=== PATIENT | female | born 1960 | race Caucasian/White ===

== ENCOUNTER 2025-03-22 11:04 | Outpatient (AMB) | payer MEDICARE, MEDICAID, SELFPAY ==
--- OUTSIDE RECORDS SUMMARY | 2025-03-17 23:59 | XMS_ITS | Continuity of Care Document ---
Author Organization [facility] Address [address] [place] [address]- Care Team Providers Care Voip Engineer Name Role Phone Elder Cinthia VARGAS Primary Care Physicia n Encounter [facility] Date(s): 02/15/25 - 03/17/25 [facility] [address] [place] [id number] Encounter Type: Triage Allergies, Adverse Reactions, Alerts No Known Allergies Immunizations Given and Recorded Vaccine Date Status Refusal Reason influenza virus vaccine, inactivated 1 06/18/23 Gi john influenza virus vaccine, inactivated 2 06/10/22 Gi john influenza virus vaccine, inactivated 3, 4 04/25/19 Given influenza virus vaccine, inactivated 5 01/01/17 Gi john influenza virus vaccine, inactivated 6 12/10/15 Gi john influenza virus vaccine, inactivated 12/23/14 Give n influenza virus vaccine, inactivated 01/25/10 Glynn rded influenza virus vaccine, inactivated 05/03/08 Glynn rded SARS-CoV-2 (COVID-19) mRNA-1273 vaccine 09/19/20 R ecorded SARS-CoV-2 (COVID-19) mRNA-1273 vaccine 08/21/20 R ecorded Tet/diphth/pertussis, acel (oldterm) 7 12/23/14 Gi john tetanus/diphtheria/pertussis, acel(Tdap) 12/23/14 Recorded tetanus/diphtheria/pertussis, acel(Tdap) 05/03/13 Given pneumococcal 23-valent vaccine 8 01/02/14 Given tetanus-diphtheria toxoids (Td) 04/20/03 Recorded 1Result Comment: [facility] [id number] 2Result Comment: [facility] [id number] 3Early/Late Reason: Other : . 4Result Comment: [facility] [id number] [facility] 6[facility] 7[facility] 8[facility] Medications buPROPion 100 mg oral tablet 1 tablet, By Mouth, 2 times a day, # 180 tablet, 1 Refills, Maintenance, 06/24/23 2:28:00 PM EST, MEDMINDER, 155.6, cm, 06/18/23 14:47:00 EST, Height Start Date: 06/24/23 Status: Ordered Medication Dispense Status: Completed Quantity: 180.0 Unit: tablet Total Allowed Fills: 2 Fills Dispensed: 0 docusate sodium 100 mg oral tablet 2 tablet = 200 mg, By Mouth, Daily, 0 Refills, Maintenance, 03/16/25 7:53:00 AM EST, Partial fill upon patient request if the prescription is for a schedule II opioid drug. Start Date: 03/16/25 Status: Ordered Medication Dispense Status: Completed Total Allowed Fills: 1 Fills Dispensed: 0 Flonase 50 mcg/inh nasal spray 1 sprays = 50 mcg, Nares, Both, Daily, 0 Refills, Maintenance, 03/16/25 7:54:00 AM EST, Partial fill upon patient request if the prescription is for a schedule II opioid drug. Start Date: 03/16/25 Status: Ordered Medication Dispense Status: Completed Total Allowed Fills: 1 Fills Dispensed: 0 Freestyle Lite Lancets See Instructions, # 100 each, Refills 5, Tot. Refills 5, Maintenance, USE TO CHECK GLUCOSE ONCE DAILY DX E11.9, 07/13/23 4:32:00 PM EDT, Supply, 155.6, cm, 06/29/23 14:24:00 EDT, Height Start Date: 07/13/23 Status: Ordered Medication Dispense Status: Completed Quantity: 100.0 Unit: each Total Allowed Fills: 6 Fills Dispensed: 0 Freestyle Lite Monitor See Instructions, # 1 each, Maintenance, USE TO CHECK GLUCOSE ONCE DAILY DX E11.9, 07/13/23 4:33:00 PM EDT, Supply, 155.6, cm, 06/29/23 14:24:00 EDT, Height Start Date: 07/13/23 Status: Ordered Medication Dispense Status: Completed Quantity: 1.0 Unit: each Total Allowed Fills: 1 Fills Dispensed: 0 Freestyle Lite Test Strips See Instructions, # 100 each, Refills 5, Tot. Refills 5, Maintenance, USE TO CHECK GLUCOSE ONCE DAILY DX E11.9, 07/13/23 4:33:00 PM EDT, Supply, 155.6, cm, 06/29/23 14:24:00 EDT, Height Start Date: 07/13/23 Status: Ordered Medication Dispense Status: Completed Quantity: 100.0 Unit: each Total Allowed Fills: 6 Fills Dispensed: 0 glipiZIDE 10 mg oral tablet 1 tablet = 10 mg, By Mouth, 2 times a day, 0 Refills, Maintenance, 03/16/25 7:54:00 AM EST, Partialfill upon patient request if the prescription is for a schedule II opioid drug. Start Date: 03/16/25 Status: Ordered Medication Dispense Status: Completed Total Allowed Fills: 1 Fills Dispensed: 0 ibuprofen 400 mg oral tablet 400 mg, 1, tablet, By Mouth, Every 6 hours, PRN, Refills 0, Maintenance, Pain , Moderate, 03/16/25 7:54:00 AM EST, Partial fill upon patient request if the prescription is for a schedule II opioid drug. Start Date: 03/16/25 Status: Ordered Medication Dispense Status: Completed Total Allowed Fills: 1 Fills Dispensed: 0 Insta-Glucose 24 g/31 g oral gel = 24 Gm, By Mouth, Daily, PRN Blood Glucose, 0 Refills, Maintenance, 03/16/25 7:55:00 AM EST, Partial fill upon patient request if the prescription is for a schedule II opioid drug. Start Date: 03/16/25 Status: Ordered Medication Dispense Status: Completed Total Allowed Fills: 1 Fills Dispensed: 0 insulin glargine-yfgn 100 units/mL subcutaneous solution = 12 units, Subcutaneous Injection, Daily, 0 Refills, Maintenance, 03/16/25 7:55:00 AM EST, Partialfill upon patient request if the prescription is for a schedule II opioid drug. Start Date: 03/16/25 Status: Ordered Medication Dispense Status: Completed Total Allowed Fills: 1 Fills Dispensed: 0 insulin lispro 100 u/ml subcutaneous injection 0-6 units, Subcutaneous Injection, 3 times a day before meals, 151-200=2 units 201-250=3 units 301-350=4 units 351-399=6 units, 0 Refills, Maintenance, 03/16/25 7:56:00 AM EST, Partial fill upon patient request if the prescription is for a schedule II opioid drug. Start Date: 03/16/25 Status: Ordered Medication Dispense Status: Completed Total Allowed Fills: 1 Fills Dispensed: 0 Lipitor 20 mg oral tablet 1 tablet = 20 mg, By Mouth, Daily, 0 Refills, Maintenance, 03/16/25 7:50:00 AM EST, Partial fill upon patient request if the prescription is for a schedule II opioid drug. Start Date: 03/16/25 Status: Ordered Medication Dispense Status: Completed Total Allowed Fills: 1 Fills Dispensed: 0 loperamide 2 mg oral capsule 2 mg, 1, capsule, By Mouth, Every 8 hours, PRN, Refills 0, Maintenance, as needed for loose stool, 03/16/25 7:57:00 AM EST, Partial fill upon patient request if the prescription is for a schedule II opioid drug. Start Date: 03/16/25 Status: Ordered Medication Dispense Status: Completed Total Allowed Fills: 1 Fills Dispensed: 0 MiraLax oral powder for reconstitution 1 pack/packet, By Mouth, Every 24 hours, PRN Constipation, 0 Refills, Maintenance, 03/16/25 7:52:00AM EST, Partial fill upon patient request if the prescription is for a schedule II opioid drug. Start Date: 03/16/25 Status: Ordered Medication Dispense Status: Completed Total Allowed Fills: 1 Fills Dispensed: 0 Norvasc 5 mg oral tablet 5 mg, 1, tablet, By Mouth, Daily, Refills 0, Maintenance, 03/16/25 7:50:00 AM EST, Partial fill upon patient request if the prescription is for a schedule II opioid drug. Start Date: 03/16/25 Status: Ordered Medication Dispense Status: Completed Total Allowed Fills: 1 Fills Dispensed: 0 ondansetron 4 mg oral tablet 1 tablet = 4 mg, By Mouth, Every 6 hours, PRN Nausea & Vomiting, 0 Refills, Maintenance, 03/16/25 8:00:00 AM EST, Partial fill upon patient request if the prescription is for a schedule II opioiddrug. Start Date: 03/16/25 Status: Ordered Medication Dispense Status: Completed Total Allowed Fills: 1 Fills Dispensed: 0 Senna 8.6 mg oral tablet 17.2 mg, 2, tablet, By Mouth, Every 24 hours, PRN, Refills 0, Maintenance, as needed for constipation, 03/16/25 7:57:00 AM EST, Partial fill upon patient request if the prescription is for a scheduleII opioid drug. Start Date: 03/16/25 Status: Ordered Medication Dispense Status: Completed Total Allowed Fills: 1 Fills Dispensed: 0 TRANSFER SHOWER CHAIR TRANSFER SHOWER CHAIR, See Instructions, # 1 each, Refills 0, Tot. Refills 0, Maintenance, PREVIOUSCHAIR BROKE USE DIRECTED, DX H/O CVA, [address] [address] [place] [employer] [phone], 08/23/21 9:57:00 AM EDT, Supply Start Date: 08/23/21 Status: Ordered Medication Dispense Status: Completed Quantity: 1.0 Unit: each Total Allowed Fills: 1 Fills Dispensed: 0 traZODone 150 mg oral tablet 1 tablet = 150 mg, By Mouth, Daily at bedtime, 0 Refills, Maintenance, 03/16/25 7:59:00 AM EST, Partial fill upon patient request if the prescription is for a schedule II opioid drug. Start Date: 03/16/25 Status: Ordered Medication Dispense Status: Completed Total Allowed Fills: 1 Fills Dispensed: 0 traZODone 50 mg oral tablet 25 mg, 0.5, tablet, By Mouth, 2 times a day, Refills 0, Maintenance, 03/16/25 7:58:00 AM EST, Partial fill upon patient request if the prescription is for a schedule II opioid drug. Start Date: 03/16/25 Status: Ordered Medication Dispense Status: Completed Total Allowed Fills: 1 Fills Dispensed: 0 Tums 500 mg oral tablet, chewable 500 mg, 1, tablet, Chew, 3 times a day, PRN, Refills 0, Maintenance, Indigestion, 03/16/25 7:51:00 AM EST, Partial fill upon patient request if the prescription is for a schedule II opioid drug. Start Date: 03/16/25 Status: Ordered Medication Dispense Status: Completed Total Allowed Fills: 1 Fills Dispensed: 0 Tylenol 325 mg oral tablet 650 mg, 2, tablet, By Mouth, Every 4 hours, PRN, NTE 3 gm/24 hours, Refills 0, Maintenance, Mild Pain/Fever, 03/16/25 7:49:00 AM EST, Partial fill upon patient request if the prescription is for a schedule II opioid drug. Start Date: 03/16/25 Status: Ordered Medication Dispense Status: Completed Total Allowed Fills: 1 Fills Dispensed: 0 Voltaren Arthritis Pain 1% topical gel 2 - 4 gm, Topically, Every 6 hours, PRN Pain , Moderate, Max 16 gm per day, 0 Refills, Maintenance,03/16/25 7:59:00 AM EST, Partial fill upon patient request if the prescription is for a schedule IIopioid drug. Start Date: 03/16/25 Status: Ordered Medication Dispense Status: Completed Total Allowed Fills: 1 Fills Dispensed: 0 Walker See Instructions, # 1 each, Maintenance, ROLLING WALKER, 06/20/22 3:44:00 PM EST, Supply, 155.6, cm, 06/10/22 13:09:00 EST, Height Start Date: 06/20/22 Status: Ordered Medication Dispense Status: Completed Quantity: 1.0 Unit: each Total Allowed Fills: 1 Fills Dispensed: 0 Indications: Unspecified osteoarthritis, unspecified site; Other intervertebral disc degeneration, lumbar region; WHEELED WALKER WITH SEAT WHEELED WALKER WITH SEAT, See Instructions, # 1 each, Refills 0, Tot. Refills 0, Maintenance, USE DIRECTED DX UNSTEADY GAIT, [place] [facility] [phone], 09/04/20 11:54:00 AM EDT, Supply Start Date: 09/04/20 Status: Ordered Medication Dispense Status: Completed Quantity: 1.0 Unit: each Total Allowed Fills: 1 Fills Dispensed: 0 Zoloft 100 mg oral tablet 2 tablet = 200 mg, By Mouth, Daily, 0 Refills, Maintenance, 03/16/25 7:58:00 AM EST, Partial fill upon patient request if the prescription is for a schedule II opioid drug. Start Date: 03/16/25 Status: Ordered Medication Dispense Status: Completed Total Allowed Fills: 1 Fills Dispensed: 0 ZyrTEC 10 mg oral tablet 1 tablet = 10 mg, By Mouth, Daily, 0 Refills, Maintenance, 03/16/25 8:00:00 AM EST, Partial fill upon patient request if the prescription is for a schedule II opioid drug. Start Date: 03/16/25 Status: Ordered Medication Dispense Status: Completed Total Allowed Fills: 1 Fills Dispensed: 0 Problem List Condition Confirmation Course Effective Dates Status H ealth Status Informant Hypertrophy of inter-atrial septum, lipomatous Confirmed Active Arthritis of both elbows Confirmed Active Cervical radiculopathy Confirmed Active Lumbar degenerative disc disease Confirmed Active DM II (or NOS), controlled Confirmed Active Dyslipidemia Confirmed Active Hypertension Confirmed Active Fibromyalgia syndrome Confirmed Active SELENA (generalized anxiety disorder) Confirmed Active SELENA (generalized anxiety disorder) Confirmed Active History of gastric ulcer Confirmed Active H/O: osteoarthritis Confirmed Active History of CVA (cerebrovascular accident) Confirmed Active Iron deficiency anemia Confirmed Active MDD (major depressive disorder), recurrent episode, moderate Confirmed Active Fatty infiltration of liver Confirmed Active Social History Social History Type Response Tobacco Other: [birth year] x 44y. Sex Sex Representation Female (finding) Patient Care team information Care Team Personnel Name: Cinthia Frias MD Position: [facility] Physician - Neurology Member Role: PCP Address: [address] [place] [address] Telecom: Care Team Related Persons Name: DAY TRUJILLO Name: ROSY TAY Name: CHAUNCEY TAY Name: GILA CARLSON Name: FIDELIA PEREZ Insurance Providers Guarantor name: EDD TAY Health Plan Information #: 1 Payer: MEDICARE B Payer Identifier: NA Member Number: [id number] Group Number: NA Subscriber Identifier: NA Relationship to Subscriber: self Coverage Type: NA Coverage Verification Date: NA Telecom: Address: Health Plan Information #: 2 Payer: [employer] Payer Identifier: NA Member Number: [id number] Group Number: [id number] Subscriber Identifier: NA Relationship to Subscriber: self Coverage Type: MEDICAID Coverage Verification Date: NA Telecom: Address:
--- NOTE | 2025-03-22 11:06 | A.OFFPC_ITS ---
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, diabetic Intake Note: New patient presents with wanting to renew medications and is diabetic Global Chief Experience Officer Required: No Accompanied by: psych room manager Allergies No Known Allergies Allergy (Verified 03/22/25 11:15) Tobacco use date assessed: 03/22/25 Fall risk assessment: 1 Fall in past year Last assessed Fall Risk: 03/22/25 Dental Screening Dental Screen Date: 03/22/25 Did you have a dental visit in the last 12 months?: No Did you have a dental problem in the last 6 months where you did not have access to dental care?: Yes Was dental information given to patient?: No HPI HPI Comments History of Present Illness Details History of Present Illness The patient is a 64 year old individual presenting to [facility] care and for medication refills. Type 2 Diabetes Mellitus: The patient has a history of type 2 diabetes mellitus and takes glipizide 10 mg and metformin 1000 mg twice a day. The patient was unsure what glipizide was for when asked. Major Depressive Disorder: The patient self-reports a history of depression and is on several medications for it, including bupropion, trazodone, and possibly sertraline, though the patient is unaware of what sertraline is used for. History of Cerebrovascular Accident: The patient has a history of a stroke that occurred more than 10 years ago. The patient reports it did not affect the patient's memory. Chronic Pain: The patient has a history of arthritis in both elbows, osteoarthritis, fibromyalgia, and lumbar degenerative disc disease, for which the patient reports taking acetaminophen and meloxicam 7.5 mg for generalized pain. The patient uses a wheeled walker with a seat. Chronic Constipation: The patient reports suffering from constipation and not diarrhea. The patient has taken polyethylene glycol (MiraLAX) and is on fiber therapy. Hypertension: The patient has a history of hypertension and takes amlodipine 10 mg daily. Dyslipidemia: The patient has a history of dyslipidemia and takes atorvastatin 10 mg for cholesterol. Surgical History: - Cholecystectomy - Repair of umbilical hernia - Colonoscopies - Endoscopies - section Medications: - Amlodipine 10 mg once a day for hypert ension - Aspirin 325 mg - Atorvastatin 10 mg for cholesterol - Bupropion 100 mg for depression - Cyanocobalamin 1000 mcg - Ferrous sulfate - Flonase (fluticasone), daily - Fiber therapy for constipation - Glipizide 10 mg for diabetes - Hydroxyzine 25 mg three times a day as needed - Magnesium 400 mg - Meloxicam 7.5 mg for pain - Metformin 1000 mg twice a day for diab etes - Crepurosin 2% topical cream - Nystatin - Esomeprazole 40 mg for stomach - Zofran (ondansetron) 4 mg - Oxybutynin 5 mg - Trazodone 150 mg for depression - Acetaminophen for pain - Polyethylene glycol (MiraLAX) for cons tipation - Sertraline - Ibuprofen for pain Social History: - The patient is [facility]ing from [facility]) to a residential ([facility]). - The patient states the reason for bein g in a alf was because the patient's children said they could not provide care. - The decision to move to the residential was made by the patient's children. - Functional Status: The patient uses a wheeled walker with a seat. - Tobacco use history was reviewed, but no specifics were detailed in the conversation. Past Medical History - Arthritis of both elbows - Cervical radiculopathy - Type 2 diabetes - Dyslipidemia - Fatty infiltration of liver - Fibromyalgia syndrome - Generalized anxiety disorder (SELENA) - Osteoarthritis - Cerebrovascular accident (CVA), occurr ed over 10 years ago - Gastric ulcer - Hypertension - Hypertrophy of interatrial septum - B12 deficiency anemia - Lumbar degenerative disc disease - Major depressive disorder (MDD), recur rent, moderate - History of transient ischemic attack ( TIA) - Acute stress disorder Health Maintenance - The patient needs new dentures and was informed that a referral is not required to see a dentist. - The patient's glasses are broken; the patient was advised that a referral is not needed to see an automotive parts advisor for a new prescription. - Due to type 2 diabetes, the patient re quires a yearly retina examination with an supervisor insulation, and a referral will be provided. - As part of comprehensive diabetes [facility], open referrals will be provided for a healthcare corporate account director, a art educator, and a orthodontic lab technician. [facility] Medical History (Updated 03/25/25 @ 11:32 by Marino Reed MD) SELENA (generalized anxiety disorder) Cervical radiculopathy Chronic constipation Chronic pain MDD (major depressive disorder) Wheelchair dependence Gait instability Right elbow pain Bilateral finger arthralgia History of CVA (cerebrovascular accident) Dizziness Osteoarthritis Degenerative disc disease, lumbar Lumbar spondylosis Cervical disc disorder w/radiculopathy minzoaii-qtxtsjs-crday region Anemia Peptic ulcer disease Gastritis Steatosis, liver Dyslipidemia Dysphagia Hypertrophic cardiomyopathy Hypertension Fibromyalgia Type 2 diabetes mellitus TIA (transient ischemic attack) CVA (cerebral vascular accident) Surgical History (Updated 03/22/25 @ 11:32 by Wagner Craig CMA) H/O hand surgery Hx of cholecystectomy H/O section Family History (Updated 03/22/25 @ 11:33 by Wagner Craig CMA) Sister Substance abuse Other FH: mental illness Social History (Updated 03/22/25 @ 11:33 by Wagner Craig CMA) Housing: Assisted Living Facility Alcohol intake: never Patient Tobacco Use Status: Former Tobacco user e-Cigarette/Vaping Use: Never Used Second Hand Smoke Exposure: No service: No Current occupational status: disabled Current occupational exposures/hazards: No Cognitive needs: Yes Hearing needs: Yes Vision needs: Yes Questionnaire PHQ-9 Over the last 2 weeks, how often have you been bothered by any of the following problems? 1. Little interest or pleasure in doing things: not at all 2. Feeling down, depressed, or hopeless: not at all 3. Trouble falling or staying asleep, or sleeping too much: not at all 4. Feeling tired or having little energy: not at all 5. Poor appetite or overeating: not at all 6. Feeling bad about yourself - or that you are a failure or have let yourself o r your family down: not at all 7. Trouble concentrating on things, such as reading the newspaper or watching television: not at all 8. Moving or speaking so slowly that other people could have noticed. Or the opposite - being so fidgety or restless that you have been moving around a lot more than usual: not at all 9. Thoughts that you would be better off or of hurting yourself in some way: not at all Total score: 0 Depression Screening Interpretation: Negative Depression Screening Done: Yes 31046 - PHQ-9 Billing: Yes Source: Developed by Drs. Radames Crawley, Sophie Clarke, Jonatan zamora nd colleagues, with an educational aaron from [employer]. Thrive Questionnaire Date Thrive assessed: 03/22/25 I am a: Patient What is your living situation today?: I have a steady place to live Within the past 12 months, did the food you bought not last and you didn't have the money to get more?: Never true Within the past 12 months, did you worry whether your food would run out before you got money to buy more?: Never true Do you have trouble paying for medicines?: No Do you have trouble getting transportation to medical appointments?: No Do you have trouble paying your heating and electricity bill?: No Do you have trouble taking care of your child, family member or friend?: No Are you currently unemployed and looking for a job?: No Are you interested in more education?: No Please select the resources that you would like help with: None Currently or been in a relationship where the following occur: No concerns reported THRIVE Score: 0 AUDIT C Alcohol Use Questionnaire (AUDIT-C) 1. How often do you have a drink containing alcohol?: Never Total Score: 0 SELENA-7 AMB Questionnaire SELENA-7 Date SELENA - 7 assessed: 03/22/25 Feeling nervous, anxious, or on edge: 0 = Not at all Not being able to stop or control worryin = Not at all Worrying too much about different things: 0 = Not at all Trouble relaxin = Not at all Being so restless that it is hard to sit still: 0 = Not at all Becoming easily annoyed or irritable: 0 = Not at all Feeling afraid as if something awful might happen: 0 = Not at all Total SELENA-7 score (0-4 normal; 5-9 mild; 10-14 moderate; 15-21 severe): 0 Source: Developed by Drs. Radames Crawley, Sophie Clarke, Jonatan So and colleagues, with an educational aaron from [employer]. SELENA-7 Assessment Billing SELENA-7 Assessment Tool: SELENA-7 Assessment 67423 Review of Systems Narrative Review of Systems - Psychiatric: Reports history of depression. - Neurological: Denies memory problems related to a past stroke. - Gastrointestinal: Reports constipation. Denies diarrhea and nausea. - Musculoskeletal: Reports generalized pain. 10-point ROS reviewed and negative except as noted in HPI Physical exam (Primary Care) Vital Signs: Last Vital Signs Temp 97.6 F 03/22/25 11:33 Pulse 79 03/22/25 11:33 Resp 16 03/22/25 11:33 BP 142/91 H 03/22/25 11:33 Pulse Ox 97 03/22/25 11:33 Oxygen Delivery Method Room Air 03/22/25 11:33 Tobacco/Smoking Status: Tobacco use Status Tobacco use date assessed 03/22/25 03/22/25 11:33 Patient Tobacco Use Status Former Tobacco user 03/22/25 11:33 e-Cigarette/Vaping Use Never Used 03/22/25 11:33 PHQ-9: PHQ-9 Score PHQ-9: Total score 0 03/22/25 11:39 Depression Screening Interpretation: Negative Thrive Assessment: Date of Thrive Assessment Date Thrive assessed 03/22/25 03/22/25 11:09 Currently or been in a relationship where the following occur: No concerns reported Narrative Physical Exam General: Well-appearing, in no acute distress. Vital signs: Within normal limits. HEENT: Normocephalic, atraumatic. PERRLA, EOMI. Conjunctiva clear, sclera anicteric. Oropharynx clear, mucous membranes moist. TMs intact bilaterally. Neck: Supple, no lymphadenopathy, no thyromegaly, no JVD or carotid bruits. Cardiovascular: RRR, normal S1/S2, no murmurs, rubs, or gallops. Peripheral pulses 2+ and symmetric. No edema. Respiratory: Lungs clear to auscultation bilaterally, no wheezes, rales, or rhonchi. Normal effort. Abdomen: Soft, non-tender, non-distended. Normoactive bowel sounds. No hepatosplenomegaly, no masses. MSK: Full range of motion, no joint swelling or deformity. ataxic gait. Uses a wheeled walker with a seat. Skin: Warm, dry, intact. No rashes, lesions, or pallor. Neuro: Alert and oriented x3. Cranial nerves II-XII intact. Strength 5/5 throughout. Sensation intact. Reflexes 2+ symmetric. Normal coordination and gait. Psych: Appropriate mood and affect. Normal judgment and insight. History of major depressive disorder and generalized anxiety disorder. Coding Level of Care Code New Pt Level 4 (20750) Diagnoses Type 2 diabetes mellitus E11.9 MDD (major depressive disorder) F32.9 History of CVA (cerebrovascular accident) Z86.73 Chronic pain G89.29 Bilateral finger arthralgia M25.541; M25.542 Right elbow pain M25.521 Gait instability R26.81 Wheelchair dependence Z99.3 Dizziness R42 Fibromyalgia M79.7 Chronic constipation K59.09 Osteoarthritis M19.90 Degenerative disc disease, lumbar M51.369 Cervical radiculopathy M54.12 SELENA (generalized anxiety disorder) F41.1 Additional Codes SELENA-7 Assessment Billing - SELENA-7 Assessment Tool: SELENA-7 Assessment 92048 ([id number]) PHQ-9 - 78683 - PHQ-9 Billing: Yes ([id number]) Assessment & Plan Assessment & Plan (1) Type 2 diabetes mellitus: Code(s): E11.9 - Type 2 diabetes mellitus without complications Category: Medical (2) MDD (major depressive disorder): Code(s): F32.9 - Major depressive disorder, single episode, unspecified Category: Medical (3) History of CVA (cerebrovascular accident): Code(s): Z86.73 - Personal history of transient ischemic attack (TIA), and cerebral infarction without residual deficits Category: Medical (4) Chronic pain: Code(s): G89.29 - Other chronic pain Category: Medical (5) Bilateral finger arthralgia: Code(s): M25.541 - Pain in joints of right hand; M25.542 - Pain in joints of left hand Category: Medical (6) Right elbow pain: Code(s): M25.521 - Pain in right elbow Category: Medical (7) Gait instability: Code(s): R26.81 - Unsteadiness on feet Category: Medical (8) Wheelchair dependence: Code(s): Z99.3 - Dependence on wheelchair Category: Medical (9) Dizziness: Code(s): R42 - Dizziness and giddiness Category: Medical (10) Fibromyalgia: Code(s): M79.7 - Fibromyalgia Category: Medical (11) Chronic constipation: Code(s): K59.09 - Other constipation Category: Medical (12) Osteoarthritis: Code(s): M19.90 - Unspecified osteoarthritis, unspecified site Category: Medical (13) Degenerative disc disease, lumbar: Code(s): M51.369 - Other intervertebral disc degeneration, lumbar region without mention of lumbar back pain or lower extremity pain Category: Medical (14) Cervical radiculopathy: Code(s): M54.12 - Radiculopathy, cervical region Category: Medical (15) SELENA (generalized anxiety disorder): Code(s): F41.1 - Generalized anxiety disorder Category: Medical Plan Consent Patient was informed and verbally consented to the use of an ambient scribe for clinic note documentation during this visit. Plan 1. Establishing Care And Medication Management - Will establish care as the patient's new primary care physician. - Ordered baseline labs, including A1c and lipid panel, to be drawn today. - Will refill medications such as fluticasone, polyethylene glycol, and sertraline at this time. - Will defer refilling metabolic medications like glipizide and atorvastatin until lab results are reviewed. 2. Type 2 Diabetes Mellitus - Intend to discontinue glipizide due to the risk of hypoglycemia and falls. - Management will be re-evaluated after reviewing the A1c result. - Provide referrals for ophthalmology for a yearly retina exam, a healthcare corporate account director, a art educator, and podiatry. 3. Cardiovascular Health (Hypertension, Dyslipidemia, History Of Cva) - Provide referral to cardiology for further evaluation given the patient's history. - Will re-evaluate the need for atorvastatin after reviewing lipid panel results. - Provide referral to neurology as requested for further evaluation. 4. Ancillary Care Needs - The patient was advised to seek appointments with a dentist for dentures and an automotive parts advisor for new glasses, as referrals are not needed. Discussion Notes I have reviewed the patient's extensive medical history and medication list during this visit to establish care. I explained that before I can refill all medications, particularly those for diabetes and cholesterol, I need to see recent lab work to ensure safety and appropriateness of the current regimen. I expressed my concern with the use of glipizide, as it carries a risk of hypoglycemia, which is especially dangerous in a patient who is at high risk for falls. I discussed the importance of comprehensive, team-based care for diabetes management and informed the patient and caregiver that I will provide open referrals to a orthodontic lab technician, healthcare corporate account director, art educator, and an supervisor insulation for a diabetic retina exam. I also agreed to provide referrals to cardiology and neurology. I clarified that referrals are not necessary to see a dentist for dentures or an automotive parts advisor for glasses. Patient Instructions - Please have your blood drawn at the lab here in the clinic today. You do not need to be fasting. - We will refill some of your medications now. Other medications for diabetes and cholesterol will be refilled after your lab results are reviewed. - You can schedule an appointment directly with a dentist to be fitted for new dentures. - You can also schedule an appointment directly with an eye doctor (automotive parts advisor) to get new glasses. - We will provide you with referrals to see specialists for your diabetes, including an personnel placement specialist (supervisor insulation), a foot doctor (orthodontic lab technician), a healthcare corporate account director, and a art educator. - We will also give you referrals to see a heart doctor (carpet installation specialist) and a nerve doctor (neurologist). Medical Decision Making The patient is a 64-year-old individual with a complex polymorbid history who presents to establish care after transitioning from a custodial facility to a residential. The primary goals of this visit were to assume the role of PCP, review and manage the patient's extensive medication list, and address care coordination needs. Given the lack of recent laboratory data, the decision was made to obtain baseline chemistries, A1c, and a lipid panel prior to refilling all medications. Specifically, the use of glipizide is concerning due to the high risk of hypoglycemia and subsequent falls in this vulnerable patient, who already requires a walker for ambulation. I plan to discontinue this medication pending A1c results and will manage the diabetes with safer agents. Comprehensive, team-based care is critical for this patient's type 2 diabetes, and as such, referrals will be placed to podiatry, ophthalmology, a healthcare corporate account director, and a art educator. A cardiology referral is also warranted given the history of CVA/TIA. Non-metabolic medications will be refilled to ensure continuity and prevent decompensation of stable chronic conditions like depression. Total Time Statement Total time spent caring for the patient today includes pre-visit chart review, documentation, review of laboratory and diagnostic imaging results, medication reconciliation, medically necessary evaluation, counseling on diagnoses, care coordination, ordering appropriate tests and medications, review of tests per formed by other providers, reporting test results to the patient, and communication with other healthcare providers. Orders: Orders MMR IgG Measles Mumps Rubella 03/22/25 Z13.9 - Encounter for screening, unspecified Complete Blood Count Auto Diff 03/22/25 Z13.9 - Encounter for screening, unspecified Syphilis Screen 03/22/25 Z13.9 - Encounter for screening, unspecified Comprehensive Met. Panel 03/22/25 Z13.9 - Encounter for screening, unspecified Hepatitis C Antibody 03/22/25 Z13.9 - Encounter for screening, unspecified Lipid Panel 03/22/25 Z13.9 - Encounter for screening, unspecified Magnesium 03/22/25 Z13.9 - Encounter for screening, unspecified OT Evaluation and Treatment 03/22/25 M25.521 - Pain in right elbow, M25.541 - Pain in joints of right hand, M25.542 - Pain in joints of left hand Quantiferon TB Gold Plus 1 03/22/25 Z13.9 - Encounter for screening, un specified Varicella IgG Antibody 03/22/25 Z13.9 - Encounter for screening, unspecified Hepatitis B Surface Antigen 03/22/25 Z13.9 - Encounter for screening, unspecified TSH reflex Free T4 03/22/25 Z13.9 - Encounter for screening, unspecified HIV Ab/Ag 03/22/25 Z13.9 - Encounter for screening, unspecified UA CC w/rflx Micro + Cult 03/22/25 Z13.9 - Encounter for screening, unspecified Vitamin B12 and Folate 03/22/25 Z13.9 - Encounter for screening, unspecified Hemoglobin A1c 03/22/25 Z13.9 - Encounter for screening, unspecified Vitamin D 1,25 dihydroxy 03/22/25 Z13.9 - Encounter for screening, unspecified Hepatitis B Surface Antibody 03/22/25 Z13.9 - Encounter for screening, unspecified PT Evaluation and Treatment 03/22/25 R26.81 - Unsteadiness on feet, Z86.73 - Personal history of transient ischemic attack (TIA), and cerebral infarction without residual deficits, Z99.3 - Dependence on wheelchair Referrals Neurology Referral R42 - Dizziness and giddiness, Z86.73 - Personal history of transient ischemic attack (TIA), and cerebral infarction without residual def icits Nutrition/Dietitian Referral E11.9 - Type 2 diabetes mellitus without complications Nurse Navigator Referral E11.9 - Type 2 diabetes mellitus without complications Podiatry Referral E11.9 - Type 2 diabetes mellitus without complications Ophthalmology Referral E11.9 - Type 2 diabetes mellitus without complications
[2025-03-22 11:33] VITALS: BP 142/91; PULSE 79; RESP 16; TEMP 36.4; O2SAT 97
--- OUTSIDE RECORDS SUMMARY | 2025-03-22 13:11 | XMS_ITS | Encounter Summary ---
Author Organization [facility] Address [address] [place] [address] Care Team Providers Care Director Of Retail Operations Name Role Phone Cinthia Frias MD Primary Care Provider + Encounter Details Date Type Department Care Team (Late st Contact Info) Description 03/10/2024 Lab Requisition [facility] - Main Lab [address] [place] [address] Cinthia Frias MD [address] [id number] Type 2 diabetes mellitus without complications (CMS/HCC V24, CMS/HCC V28) Social History Tobacco Use Types Packs/Day Years Used Date Smoking Tobacco: Every Day Cigarettes Alcohol Use Standard Drinks/Week Comments No 0 (1 standard drink = 0.6 oz pur e alcohol) Comments Unknown Sex and Gender Information Value Date Recorded Sex Assigned at Not on file Legal Sex Female 3:23 PM EST Gender Identity Not on file Sexual Orientation Not on file documented as of this encounter Plan of Treatment Not on file documented as of this encounter Procedures Procedure Name Priority Date/Time Associated Diagnosis Comments HEMOGLOBIN A1C Routine 03/10/2024 7:27 AM EST Type 2 diabetes mellitus without complications (CMS/HCC) documented in this encounter Results * (ABNORMAL) Hemoglobin A1c (03/10/2024 7:27 AM EST) Hemoglobin A1C 11.0(H) <6.5 % LAB CHEMISTRY METHOD 03/10/2024 12:40 PM EST [facility] Mean Bld Glu Estim. 269 mg/dL LAB CHEMISTRY METHOD 03/10/2024 12:[address] [facility] Blood Venous blood specimen / Unknown Venipuncture / Unknown 03/10/2024 7:27 AM EST 03/10/2024 8:24 AM EST us Cinthia Frias MD LAB BLOOD ORDERABLES Fin al Result [facility] ([facility]) [facility] [address] [place] [address], documented in this encounter Visit Diagnoses Diagnosis Type 2 diabetes mellitus without complications (CMS/HCC V24, CMS/HCC V28) documented in this encounter Care Teams Director Of Retail Operations Relationship Specialty Start Date End Date Cinthia Frias MD PCP - General Family Medicine 08/01/24 documented as of this encounter
--- OUTSIDE RECORDS SUMMARY | 2025-03-22 13:11 | XMS_ITS ---
Author Organization [facility] Care Team Providers Care Employment Interviewer Name Role Phone Elder, Cinthia Aguillon Unavailable Unavailab Rhett Hoyt Unavailable Unavailable Sabina Hunter Unavailable Unavailable Janessa Maurer Unavailable Unavailable Nancy Lassiter Unavailable Unavailable Allergies and adverse reactions No Known Allergies Care Team Name Role Address Phone Organization Dates Cinthia Aguillon Elder PCP [address] [place], [address], [place] (Office): : [facility] 07/22/2023 - 03/22/2025 Rhett Modi [address] [place] [address], [address], [place] (Office): : [facility] 07/22/2023 - 03/22/2025 Sabina Hunter [address] [facility], [facility] [address], [place], [address], [facility] (Office): : [facility] 07/22/2023 - 03/22/2025 Janessa Maurer [address] [place], [address], [place] (Office): : [facility] 07/22/2023 - 03/22/2025 Nancy Lassiter [address] [address], [place], [address], [facility] (Office): [facility] 07/22/2023 - 03/22/2025 Encounters Encounter Type Code Code System Description Performer Discharge Disposition Service Delivery Location Date Ambulatory Encounter CPT Code = [id number] Incoordination May Mangalili Discharge to other destination [facility] Address: [address] [place] [address], [phone] [facility]. 07/21 Ambulatory Encounter CPT Code = [id number] Lumbar spondylosis May Mangalili Discharge to other destination [facility] Address: [address] [place] [phone] [facility]. 07/21 Ambulatory Encounter CPT Code = [id number] Finding related to attentiveness May Mangalili Discharge to other destination [facility] Address: [address] [place] [address], [phone] [facility]. 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. 07/21 Ambulatory Encounter CPT Code = [id number] Type 2 diabetes mellitus May Mangalili Discharge to other destination [facility] Address: [address] [place] [address], [phone] [facility]. 07/21 Ambulatory Encounter CPT Code = [id number] Muscle weakness May Mangalili Discharge to other destination [facility] Address: [address] [place] [phone] [facility]. 07/21 Ambulatory Encounter CPT Code = [id number] Adult failure to thrive syndrome May Mangalili Discharge to other destination [facility] Address: [address] [place], [address], [facility]. 07/21 Ambulatory Encounter CPT Code = [id number] Oropharyngeal dysphagia May Mangalili Discharge to other destination [facility] Address: [address] [facility] [address], [facility]. 07/21 Ambulatory Encounter CPT Code = [id number] Degeneration of lumbar intervertebral disc May Mangalili Discharge to other destination [facility] Address: [address] [place], [address], [facility]. 07/21 Ambulatory Encounter CPT Code = [id number] Degeneration of lumbar intervertebral disc May Mangalili Discharge to other destination [facility] Address: [address] [place] [phone] [place] [address]. 07/21 Ambulatory Encounter CPT Code = [id number] Localized, primary osteoarthritis of elbow May Mangalili Discharge to other destination [facility] Address: [address] [place], [address], [facility]. 07/21 Ambulatory Encounter CPT Code = [id number] Localized, primary osteoarthritis of elbow May Mangalili Discharge to other destination [facility]ending [facility] Address: [address] [place] [address], [phone] [place] [address]. 07/21 Ambulatory Encounter CPT Code = [id number] Cervical disc disorder with radiculopathy May Mangalili Discharge to other destination [facility] Address: [address] [place], [address], [facility]. 07/21 Ambulatory Encounter CPT Code = [id number] Localized, primary osteoarthritis of elbow May Mangalili Discharge to other destination [facility] Address: [address] [facility] [address], [facility]. 07/21 Ambulatory Encounter CPT Code = [id number] Type 2 diabetes mellitus without complication May Mangalili Discharge to other destination [facility] Address: [address] [place], [address] [place] [address]. 07/21 Ambulatory Encounter CPT Code = [id number] Generalized anxiety disorder May Mangalili Discharge to other destination [facility] Address: [address] [facility] [address] [place] [address]. 07/21 Ambulatory Encounter CPT Code = [id number] Recurrent major depression May Mangalili Discharge to other destination [facility] Address: [address] [facility] [address], [facility]. 07/21 Ambulatory Encounter CPT Code = [id number] Hyperlipidemia May Mangalili Discharge to other destination [facility] Address: [address] 07/21 Ambulatory Encounter CPT Code = [id number] Fibromyalgia May Mangalili Discharge to other destination [facility] Address: [address] [facility] [address] [place] [address]. 07/21 Ambulatory Encounter CPT Code = [id number] Cerebrovascular disease May Mangalili Discharge to other destination [facility] Address: [address] [place], [address] [place] [address]. 07/21 Ambulatory Encounter CPT Code = [id number] Gastric ulcer without hemorrhage AND without perforation May Mangalili Discharge to other destination [facility] Address: [address] [place], [address] 07/21 Ambulatory Encounter CPT Code = [id number] Essential hypertension May Mangalili Discharge to other destination [facility] Address: [address] [facility] [address], [facility]. 07/21 Ambulatory Encounter CPT Code = [id number] Anemia May Mangalili Discharge to other destination [facility] Address: [address] [facility] [address], [facility]. 07/21 Ambulatory Encounter CPT Code = [id number] Hypertrophic cardiomyopathy May Mangalili Discharge to other destination [facility] Address: [address] [place] [address], [place], [address] , [facility]. 07/21 Goals Section Goals Description Status Target Date [place] my code status wishes through next review Active 06/17/2025 I will be compliant with the medication regimen & therapies prescribed by my doctor. I will be free of any discomfort or adverse side effects to therapies through the review date. Active 06/17/2025 I will be compliant with the non medication therapies, medication regimen & therapies prescribed by my doctor. Active I will be compliant with the non medication therapies, medication regimen & therapies prescribed by my doctor. I will be free of any discomfort or adverse side effects to therapies through the review date. Active 06/17/2025 I will be compliant with the non medication therapies, medication regimen & therapies prescribed by my doctor. I will not have an interruption in normal activities due to pain through the review date. I will be free of any discomfort or adverse side effects to therapies through the review date. Active 06/17/2025 I will be compliant with the non medication therapies, medication regimen & therapies prescribed by my doctor. I will not have an interruption in normal activities due to pain through the review date. I will be free of any discomfort or adverse side effects to therapies through the review date. Active 06/17/2025 I will be compliant with the non medication therapies, medication regimen & therapies prescribed by my doctor. I will not have an interruption in normal activities due to pain through the review date. I will be free of any discomfort or adverse side effects to therapies through the review date. Active 06/17/2025 I will be compliant with the non-pharmacological therapies, medication regimen & therapies prescribed by my doctor. I will not have an interruption in normal activities due to pain through the review date. I will be free of any discomfort or adverse side effects to therapies through the review date. Active 06/17/19 26 I will be compliant with giuliana pierre skin assessments though review date. Active 06/17/2025 I will be free from skin irr itation or breakdown due to urinary or bowel incontinence x 90 days. Active 06/17/2025 I will be free of any discom fort or adverse side effects to therapies through the review date. Active 06/17/2025 I will be free of falls through the next review date. Active 06/17/2025 I will be free of major decl ine in ADL status through the review date. Active 06/17/2025 I will be provided a calm and relaxed environmen t as needed. Active 06/17/2025 I will communicate my needs to the staff through the review date. Active 06/17/2025 I will comply with given emo tional support as needed from staff through the review date. Active 06/17/2025 I will comply with nutrition al supplements that help with healing through review date. Active 06/17/2025 I will have an acceptable le karel of comfort and have well-controlled pain through the review date. Active 06/17/19 I will have no adverse healt h outcomes related to noncompliance/ or my choice to not follow directions of the medical team Active 06/17/2025 I will maintain optimal stat us and quality of life through review date. Active 06/17/2025 I will not have an interrupt ion in normal activities due to pain through the review date. Active 06/17/2025 I will participate in activi ties of my choosing through the review date. Active 06/17/2025 Francine will comply with Diet O rder and food choices will be followed per medical guidelines through the review date. Active 2025 Francine will maintain a stabili zed weight showing no significant changes through next review date. Active 06/17/2025 Review my placement status quarterly and as need ed Active 06/17/2025 Functional Status Code Name Recorded Time Value Entered By 1 step (curb) 03/22/2025 Not assessed mampofo 12 steps 03/22/2025 Independent mampofo 4 steps 03/22/2025 Independent mampofo Chair/mos-zj-ifxaj transfer 03/22/2025 Partial/moder ate assistance mampofo Does the resident use a wheelchair and/or scooter? 03/22/2025 Yes (qualifier value) mampofo Eating 03/21/2025 Setup or clean-up assistance dsanta Feeding or Eating 02/24/2025 Supervision APICARD3 Lower body dressing 03/22/2025 Partial/moderate assi stance mampofo Lying to sitting on side of bed 03/22/2025 Partial/m oderate assistance mampofo Oral hygiene 03/22/2025 Not assessed mampofo Personal hygiene 03/22/2025 Partial/moderate assista nce mampofo Picking up object 03/22/2025 Not assessed mampofo Putting on/taking off footwear 03/22/2025 Partial/mo derate assistance mampofo Roll left and right 03/22/2025 Independent mampofo Shower/bathe self 03/22/2025 Not assessed mampofo Sit to lying 03/22/2025 Not assessed mampofo Sit to stand 03/22/2025 Partial/moderate assistance mampofo Toilet transfer 03/22/2025 Partial/moderate assistan ce mampofo Toileting hygiene 03/22/2025 Partial/moderate assist ance mampofo Upper body dressing 03/22/2025 Partial/moderate assi stance mampofo Walk 10 feet 03/22/2025 Not assessed mampofo Walk 150 feet 03/22/2025 Independent mampofo Walk 50 feet 03/22/2025 Independent mampofo Walking 10 feet on uneven surfaces 03/22/2025 Independent mampofo Wheel 150 feet 03/22/2025 Not assessed mampofo Wheel 50 feet with two turns 03/22/2025 Partial/mode rate assistance mampofo Immunizations Immunization Status Vaccine Details Vaccine Code CodeSystem Date Notes Influenza completed Influenza, high-dose, split virus, quadrivalent, injectable, preservative free lotNumber: [id number] expiry: 10/17/2024 Mfg: Seqerius afluria Given 0.5 ml Right Deltoid intramuscularly 197 CVX created date: 01/26/2024 consent date: 01/26/2024 administer ed date: 01/22/2024 Educated by Lory SIMONS/LEONID on 01/19/2024 Administere d by Lory Bardales RN, BSN, RONAK/LEONID Influenza completed Influenza, high-dose, split virus, quadrivalent, injectable, preservative free 197 CVX created date: 11/11/2023 administer ed date: 06/18/2023 TB 1 Step Mantoux (PPD) completed tuberculin skin test; unspecified formulation lotNumber: [id number] expiry: 03/20/2026 Mfg: Sanofi pasteur Given 0.1 ml Right Forearm intradermally 98 CVX created date: 07/23/2023 consent date: 07/23/2023 administer ed date: 07/23/2023 no redness noted, 3 mm induration, negative result SARS-COV-2 (COVID-19) completed Step 2 of Multi-step with next step required created date: 02/16/2025 administer ed date: 09/19/2020 SARS-COV-2 (COVID-19) completed Step 1 of Multi-step with next step required created date: 02/16/2025 administer ed date: 08/21/2020 TDAP(tetanus/di pth/pertuss) completed tetanus toxoid, reduced diphtheria toxoid, and acellular pertussis vaccine, adsorbed 115 CVX created date: 02/16/2025 administer ed date: 12/23/2014 influenza-Aflur ia Standard 0.5ml Prefilled ([id number]) completed Influenza, split virus, quadrivalent, injectable, preservative free lotNumber: [id number] expiry: 10/17/2025 Mfg: seqirus Given 0.5 ml intramuscularly 150 CVX created date: 02/07/2025 consent date: 02/03/2025 administer ed date: 02/03/2025 Educated by on 02/07/2025 RSV completed Respiratory syncytial virus (RSV), vaccine, bivalent, protein subunit RSV prefusion F, diluent reconstituted, 0.5 mL, preservative free lotNumber: [id number] expiry: 02/09/2026 Mfg: GlaxoSmith Given 0.5 ml Right Deltoid intramuscularly 305 CVX created date: 02/18/2025 consent date: 02/17/2025 administer ed date: 02/17/2025 Educated by on 02/18/2025 COVID Cominarty [id number] season completed SARS-COV-2 (COVID-19) vaccine, mRNA, spike protein, LNP, preservative free, yumiko-sucrose, 30 mcg/0.3 mL dose lotNumber: [id number] expiry: 05/09/2024 Mfg: Pfizer Given 1.0 ml Left Deltoid intramuscularly 309 CVX created date: 04/05/2024 consent date: 04/05/2024 administer ed date: 04/05/2024 Educated by on 04/05/2024 COVID vaccine completed SARS-COV-2 (COVID-19) vaccine, mRNA, spike protein, LNP, preservative free, 10 mcg/0.2 mL dose lotNumber: [id number] expiry: 10/03/2025 Mfg: Nanophotonica Given 0.3 ml Right Deltoid intramuscularly 334 CVX created date: 02/14/2025 consent date: 02/14/2025 administer ed date: 02/14/2025 Educated by on 02/14/2025 Medications Section Medication Name Status Code CodeSystem Dose Route Frequency Admin Type Sig Text Start Date End Date Indication buPROPion HCl Oral Tablet aborted 100 mg Oral two times a day Routin e Give 100 mg by mouth two times a day for depre ssion 03/22 depression Zofran Oral Tablet 4 MG aborted 07432 5 RXNORM 1 table t Oral as needed PRN Give 1 table t by mouth every 6 hours as neede d for nause a /vomi ting 03/22 nausea /vomiting AmLODIPine Besylate Tablet 5 MG aborted 67673 1 RXNORM 1 table t Oral one time a day Routin e Give 1 table t by mouth one time a day for HTN 03/22 HTN ZyrTEC Allergy Oral Tablet 10 MG aborted 41532 26 RXNORM 1 table t Oral one time a day Routin e Give 1 table t by mouth one time a day for itch 03/22 itch Insta-Gluco se Oral Gel 77.4 % aborted 09921 22 RXNORM 1 vial Oral as needed PRN Give 1 vial by mouth as neede d for for BG below 60. Pt arous able, consc ious and able to swall ow Hold all diabe tic medic ation s until provi margaux autho rizes resum ption . Remai n with pt. Keep pt.in bed/c hair for safet y. Repea t blood gluco se in 15 min. 03/22 for BG below 60. Pt arousable, conscious and able to swallow ClearLax Powder aborted 17703 7 RXNORM 17 gram Oral as needed PRN Give 17 gram by mouth every 24 hours as neede d for Const ipati on 17 GM of powde r w/ 6-8 ounce s of fluid , Stir compl etely 03/22 Constipatio n Loperamide HCl Capsule 2 MG aborted 19227 6 RXNORM 1 capsu le Oral as needed PRN Give 1 capsu le by mouth every 8 hours as neede d for Loose stool s 03/22 Loose stools Acetaminoph en Tablet 325 MG aborted 27229 2 RXNORM 2 table t Oral as needed PRN Give 2 table t by mouth every 4 hours as neede d for Pain / Fever Max APAP 3 Grams / 24 hour 03/22 Pain / Fever Fluticasone Propionate Suspension 50 MCG/ACT aborted 39576 07 RXNORM 1 spray Nasal one time a day Routin e 1 spray in each nostr il one time a day for Aller gies 03/22 Allergies Docusate Sodium Tablet 100 MG aborted 90030 79 RXNORM 2 table t Oral one time a day Routin e Give 2 table t by mouth one time a day for Const ipati on 03/22 Constipatio n GlipiZIDE Tablet 10 MG aborted 95632 8 RXNORM 1 table t Oral two times a day Routin e Give 1 table t by mouth two times a day for diabe nickie 03/22 diabetes BD AutoShield Miscellaneo us aborted 1 pen needl e Subcut aneous four times a day Routin e Injec t 1 pen needl e subcu taneo usly four times a day for DM 03/22 DM traZODone HCl Oral Tablet 150 MG aborted 95848 4 RXNORM 1 table t Oral at bedtime Routin e Give 1 table t by mouth at bedti me for Depre ssion 03/22 Depression Voltaren Arthritis Pain External Gel 1 % aborted 35395 5 RXNORM n/a n/a Topica l as needed PRN Apply to painf ul area topic ally every 6 hours as neede d for pain Apply 2g QID Upper extre mity( max 8gm per joint per day) A pply 4g QID Lower extre mity( max 16gm per joint per day) 03/22 pain Sertraline HCl Oral Tablet aborted 200 mg Oral one time a day Routin e Give 200 mg by mouth one time a day for Major Depre ssive Disor margaux 03/22 Major Depressive Disorder Senna Oral Tablet 8.6 MG aborted 2 table t Oral as needed PRN Give 2 table t by mouth every 24 hours as neede d for const ipati on 03/22 constipatio n Atorvastati n Calcium Oral Tablet aborted 20 mg Oral one time a day Routin e Give 20 mg by mouth one time a day for hyper octavia stero lemia 03/22 hypercholes terolemia IBU Oral Tablet 400 MG aborted 5 RXNORM 400 mg Oral as needed PRN Give 400 mg by mouth every 6 hours as neede d for pain relat ed to PRIMA RY OSTEO ARTHR ITIS, RIGHT ELBOW (M19. 021) 03/22 pain BD AutoShield Miscellaneo us aborted 1 unit Subcut aneous as needed PRN Injec t 1 unit subcu taneo usly as neede d for DM 03/22 DM Insulin Glargine-yf gn Subcutaneou s Solution Pen-injecto r 100 UNIT/ML aborted 93939 71 RXNORM 12 unit Subcut aneous one time a day Routin e Injec t 12 unit subcu taneo usly one time a day for diabe nickie 03/22 diabetes Insulin Lispro (1 Unit Dial) Subcutaneou s Solution Pen-injecto r 100 UNIT/ML aborted 04479 39 RXNORM n/a n/a Subcut aneous two times a day Routin e Injec t as per slidi ng scale : if 151 - 200 = 2 u subcu taneo usly; 201 - 250 = 3 u; 251 - 300 = 4 u; 301 - 350 = 5 u; 351 - 399 = 6 u, subcu taneo usly two times a day for E11.9 TYPE 2 DIABE NICKIE MARCI TUS WITHO UT COMPL ICATI ONS Conta ct MD for BS < 70 and BS >400 03/22 E11.9 TYPE 2 DIABETES MELLITUS WITHOUT COMPLICATIO NS Prevnar 20 Intramuscul ar Suspension Prefilled Syringe 0.[place] [address] 14 RXNORM 0.5 ml Intram uscula r one time only One Time Only Injec t 0.5 ml intra muscu larly one time only for preve ntion for 1 Day 03/01 prevention traZODone HCl Oral Tablet 50 MG aborted 17637 7 RXNORM 12.5 mg Oral two times a day Routin e Give 12.5 mg by mouth two times a day for depre ssion 03/05 depression Calcium Carbonate Tablet Chewable 500 MG aborted 34073 7 RXNORM 1 table t Oral as needed PRN Give 1 table t by mouth as neede d for Upset Stoma ch TID PRN 03/22 Upset Stomach Prevnar 20 Suspension Prefilled Syringe 0.[place] [address] 14 RXNORM 0.5 ml Intram uscula r one time only One Time Only Injec t 0.5 ml intra muscu larly one time only for Vacci natio n for 1 Day for patie nts 65 years or older , who have not previ ously recei conrado the vacci ne 03/05 Vaccination traZODone HCl Oral Tablet aborted 12.5 mg Oral two times a day Routin e Give 12.5 mg by mouth two times a day for depre ssion 03/14 depression traZODone HCl Oral Tablet aborted 12.5 mg Oral two times a day Routin e Give 12.5 mg by mouth two times a day for depre ssion 03/22 depression Debrox Solution 6.5 % [place] [address] 4 RXNORM 5 drop Auricu lar four times a day Routin e Insti ll 5 drop in both ears four times a day for Ear wax build up for 4 Days 03/22 Ear wax build up Mental Status Section Date Assessment Total Score Description 12/18/2024 BIMS 09 moderate cognit jose impairment CAM 0 No delirium ind icated PHQ-9 00 09/17/2024 BIMS 09 moderate cognit jose impairment CAM 0 No delirium ind icated PHQ-9 10 moderate depres rosemary Insurance Providers Coverage Status Coverage Type Relationship to Subscriber Member Identifier Subscriber Identifier Group Identifier Payer Identifier and Other information Code: 2 Code System OID:[id number]. 3.221.5 Code System Name: Source of Payment Typology (PHDSC) Display: Medicaid Translation : Code: 48 Code System: OID:[id number]. 6.255.1336 Code System Name: Insurance Type Code ([id number]) Display Name: Medicaid Code: 81 Code System OID:[id number]. 3.221.5 Code System Name: Source of Payment Typology (PHDSC) Display: Self Pay Translation : Code: 09 Code System: OID:[id number]. 6.255.1336 Code System Name: Insurance Type Code ([id number]) Display Name: Self-pay Code: 1 Code System OID:[id number] 0.1.271937. 3.221.5 Code System Name: Source of Payment Typology (PHDSC) Display: Medicare Translation : Code: MB Code System: OID:[id number]. 6.255.1336 Code System Name: Insurance Type Code ([id number]) Display Name: Medicare Part B Code: 2 Code System OID:[id number] 0.1.607881. 3.221.5 Code System Name: Source of Payment Typology (PHDSC) Display: Medicaid Translation : Code: 48 Code System: OID:[id number]. 6.255.1336 Code System Name: Insurance Type Code ([id number]) Display Name: Medicaid Plan of Treatment Section Interventions Intervention Code Code System Display Name Proposed D ate Problems Problem # Description Date of onset Resolved Date Code CodeSystem Concern Status 1 OTHER SYMPTOMS AND SIGNS INVOLVING COGNITIVE FUNCTIONS AND AWARENESS 12/04/[id number] active 2 SPONDYLOSIS WITHOUT MYELOPATHY OR RADICULOPATHY, LUMBAR REGION 12/04/[id number] active 3 TYPE 2 DIABETES MELLITUS WITH HYPERGLYCEMIA 12/04/[address] active 4 TYPE 2 DIABETES MELLITUS WITH OTHER CIRCULATORY COMPLICATIONS 12/04/[address] active 5 MUSCLE WEAKNESS (GENERALIZED) 08/16/[address] active 6 ADULT FAILURE TO THRIVE 05/31/[address] active 7 DYSPHAGIA, OROPHARYNGEAL PHASE 04/11/[address] active 8 OTHER INTERVERTEBRAL DISC DEGENERATION, 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 01/19/[address] active 9 ANEMIA, UNSPECIFIED 07/22/[address] active 10 CERVICAL DISC DISORDER WITH RADICULOPATHY, UNSPECIFIED CERVICAL REGION 07/22/[address] active 11 ESSENTIAL (PRIMARY) HYPERTENSION 07/22/[address] active 12 FIBROMYALGIA 07/22/20232029591235962 SNOMED CT acti ve 13 GASTRIC ULCER, UNSPECIFIED ACUTE OR CHRONIC, WITHOUT HEMORRHAGE OR PERFORATION 07/22/[address] active 14 GENERALIZED ANXIETY DISORDER 07/22/[address] active 15 HYPERLIPIDEMIA, UNSPECIFIED 07/22/[address] active 16 MAJOR DEPRESSIVE DISORDER, RECURRENT, UNSPECIFIED 07/22/[address] active 17 OTHER HYPERTROPHIC CARDIOMYOPATHY 07/22/[address] active 18 OTHER INTERVERTEBRAL DISC DEGENERATION, LUMBAR REGION 07/22/2023 01/19/[address] completed 19 OTHER LACK OF COORDINATION 07/22/[address] active 20 PERSONAL HISTORY OF TRANSIENT ISCHEMIC ATTACK (TIA), AND CEREBRAL INFARCTION WITHOUT RESIDUAL DEFICITS 07/22/[address] active 21 PRIMARY OSTEOARTHRITIS, LEFT ELBOW 07/22/[address] active 22 PRIMARY OSTEOARTHRITIS, RIGHT ELBOW 07/22/[address] active 23 PRIMARY OSTEOARTHRITIS, RIGHT ELBOW 07/22/2023 01/22/[address] completed 24 TYPE 2 DIABETES MELLITUS WITHOUT COMPLICATIONS 07/22/[address] active Reason for Referral No Reasons for Referral Entered Social History Social History Observation Description Start Date End Date Code Code System Current Smoking Status Tobacco smoking consumption unknown 948066166 SNOMED CT Sex Assigned At Female 1960 41288-4 [facility] Gender Identity Sexual Orientation Vital Signs Code Code System Vitals Name Values and Units Timing Information 2339-0 [facility] Blood Sugar Tejms=594.0 Units=mg/dL 03/22/2025 01958-4 INC Pain Level Value=0.0 03/22/2025 8462-4 [facility] Blood Pressure-Diastolic Value=74 Un its=mmHg 03/20/2025 8480-6 INC Blood Pressure-Systolic Kbrew=937 Un its=mmHg 03/20/2025 8310-5 [facility] Body Temperature Value=97.5 Units= F 03/19/2025 9279-1 [facility] Respiratory Rate Value=18.0 Units=/m in 03/19/2025 8867-4 [facility] Heart rate Value=70.0 Units=/min 63881-3 [facility] O2 % BldC Oximetry Value=95.0 Units= % 03/19/2025 66389-3 LOINC Weight Pkulz=122.2 Units=Lbs 05/2024 8302-2 [facility] Height Value=61.0 Units=Inches 02/02/2025
--- OUTSIDE RECORDS SUMMARY | 2025-03-22 13:11 | XMS_ITS | Encounter Summary ---
Author Organization [facility] Address [address] [place] [address] Care Team Providers Care Boat Officer Name Role Phone Cinthia Frias MD Primary Care Provider + Encounter Details Date Type Department Care Team (Late st Contact Info) Description 11/18/2024 Lab Requisition [facility] - Main Lab [address] [facility] [place] [address] Cinthia Frias MD [address] [address] Type 2 diabetes mellitus without complications (CMS/HCC [...] Procedure Name Priority Date/Time Associated Diagnosis Comments LIPID PANEL WITH REFLEX TO DIRECT LDL Routine 11/21/2024 5:44 AM EDT Type 2 diabetes mellitus without complications (CMS/HCC V24, CMS/HCC V28) COMPLETE BLOOD COUNT Routine 11/21/2024 5:44 AM EDT Type 2 diabetes mellitus without complications (CMS/HCC V24, CMS/HCC V28) HEMOGLOBIN A1C Routine 11/21/2024 5:44 AM EDT Type 2 diabetes mellitus without complications ([facility] V24, [facility] V28) BASIC METABOLIC PANEL Routine 11/21/2024 5:44 AM EDT Type 2 diabetes mellitus without complications ([facility] V24, [facility] V28) documented in this encounter Results * (ABNORMAL) Complete blood count (11/21/2024 5:44 AM EDT) [facility] WBC 7.4 4.8 - 10.8 K/mcL LAB [facility] RBC 4.40 3.80 - 4.80 M/mcL LAB HEMETOLOGY METHOD 11/21/2024 12:34 PM [facility] Hemoglobin 12.5 11.5 - 16.0 g/dL LAB HEMETOLOGY METHOD 11/21[facility]2024 [facility] Hematocrit 40.1 35.0 - 47.0 % LAB HEMETOLOGY METHOD 11/21/2024 12:34 PM [facility] MCV 90.5 79.0 - 98.0 FL LAB HEMETOLOGY METHOD 11/21/2024 12:34 PM [facility] MCH 28.2 27.0 - 32.0 pcg LAB HEMETOLOGY METHOD 11/21/2024 12:34 PM [facility] MCHC 31.2(L) 32.0 - 37.0 g/dL LAB HEMETOLOGY METHOD 11/21/2024 12:34 PM [facility] RDW 13.5 11.0 - 15.0 % LAB HEMETOLOGY METHOD 11/21/2024 12:34 PM [facility] Platelets 261 130 - 400 K/mcL LAB HEMETOLOGY METHOD 11/21/2024 12:34 PM [facility] MPV 9.9 7.0 - 11.0 FL LAB HEMETOLOGY METHOD 11/21/2024 12:34 PM EDT [facility] NRBC 0.0 <1.0 % LAB HEMETOLOGY METHOD 11/21/2024 12:34 PM EDT [facility] NRBC Absolute 0.00 <0.10 K/mcL LAB HEMETOLOGY METHOD 11/21/2024 12:34 PM EDT [facility] Blood Venous blood specimen / Unknown Venipuncture / Unknown 11/21/2024 5:44 AM EDT 11/21/2024 11:09 AM EDT Cinthia Frias MD LAB BLOOD ORDERABLES Fin al Result Performing Organization Address [facility] Co de Phone Number [facility] [address] [place] [address], * (ABNORMAL) Hemoglobin A1c (11/21/2024 5:44 AM EDT) Hemoglobin A1C 8.7(H) <6.5 % LAB CHEMISTRY METHOD 11/21/2024 2:00 PM EDT [facility] Mean Bld Glu Estim. 203 mg/dL LAB CHEMISTRY METHOD 11/21/2024 2:00 PM EDT [facility] Blood Venous blood specimen / Unknown Venipuncture / Unknown 11/21/2024 5:44 AM EDT 11/21/2024 11:09 AM EDT Cinthia Frias MD LAB BLOOD ORDERABLES Fin al Result Performing Organization Address City/[facility]/ZIP Co de Phone Number [facility] [address] [place] [address], [place] [phone] * (ABNORMAL) Lipid panel with reflex to direct LDL (11/21/2024 5:44 AM EDT) Cholesterol 243(H) 0 - 200 mg/dL LAB CHEMISTRY METHOD 11/21/2024 1:34 PM EDT [facility] Triglycerides 209(H) 0 - 150 mg/dL LAB CHEMISTRY METHOD 11/21/2024 1:34 PM EDT [facility] HDL 64 >=40 mg/dL LAB CHEMISTRY METHOD 11/21/2024 1:34 PM EDT [facility] LDL Calculated 137(H) 0 - 100 mg/dL LAB CHEMISTRY METHOD 11/21/2024 1:34 PM EDT [facility] VLDL Cholesterol Moncho 41.8 mg/dL LAB CHEMISTRY METHOD 11/21/2024 1:34 PM EDT [facility] Non HDL Chol. (LDL+VLDL) 179(H) <145 mg/dL LAB CHEMISTRY METHOD 11/21/2024 1:34 PM EDT [facility] Chol/HDL Ratio 3.8 0.0 - 4.4 LAB CHEMISTRY METHOD 11/21/2024 1:34 PM EDT [facility] Blood Venous blood specimen / Unknown Venipuncture / Unknown 11/21/2024 5:44 AM EDT 11/21/2024 11:09 AM EDT us Cinthia Frias MD LAB BLOOD ORDERABLES Fin al Result [facility] [address] [place] [address], * (ABNORMAL) Basic metabolic panel (11/21/2024 5:44 AM EDT) Pathologist [facility] Sodium 140 133 - 145 mmol/L LAB CHEMISTRY METHOD 11/21/2024 1:37 PM EDT [facility] Potassium 4.1 3.5 - 5.5 mmol/L LAB CHEMISTRY METHOD 11/21/2024 1:37 PM EDT [facility] Chloride 104 96 - 110 mmol/L LAB CHEMISTRY METHOD 11/21/2024 1:37 PM T [facility] CO2 28 21 - 32 mmol/L LAB CHEMISTRY METHOD 11/21/2024 1:37 PM [facility] Anion Gap 8 3 - 11 LAB CHEMISTRY METHOD 11/21/2024 1:37 PM [facility] Glucose 100 70 - 100 mg/dL LAB CHEMISTRY METHOD 11/21/2024 1:37 PM [facility] BUN 20 5 - 25 mg/dL LAB CHEMISTRY METHOD 11/21/2024 1:37 PM [facility] Creatinine 1.04 0.50 - 1.10 mg/dL LAB CHEMISTRY METHOD 11/21/2024 1:37 PM [facility] eGFR 59(L) >=60 mL/min/1. 73m2 LAB CHEMISTRY METHOD 11/21/2024 1:37 PM T [facility] Comment:Calculation based on the Chronic Kidney Disease Epidemiology Collaboration (CKD-EPI) equation refit without adjustment for race. BUN/Creatinine Ratio 19.2 LAB CHEMISTRY METHOD 11/21/2024 1:37 PM [facility] Calcium 9.4 8.5 - 10.5 mg/dL LAB CHEMISTRY METHOD 11/21/2024 1:37 PM [facility] Blood Venous blood specimen / Unknown Venipuncture / Unknown 11/21/2024 5:44 AM EDT 11/21/2024 11:09 AM EDT us Cinthia Frias MD LAB BLOOD ORDERABLES Fin al Result [facility] [address] [place] [address], documented in this encounter Visit Diagnoses Diagnosis Type 2 diabetes mellitus without complications (CMS/HCC V24, CMS/HCC V28) documented in this encounter Care Teams Boat Officer Relationship Specialty Start Date End Date Cinthia Frias MD PCP - General Family Medicine 08/01/24 documented as of this encounter
--- OUTSIDE RECORDS SUMMARY | 2025-03-22 13:11 | XMS_ITS | Encounter Summary ---
Author Organization [facility] Address [address] [place] [address] Care Team Providers Care Pan Greaser Name Role Phone Cinthia Frias MD Primary Care Provider + Encounter Details Date Type Department Care Team (Late st Contact Info) Description 08/01/2024 Lab Requisition [facility] - Main Lab [address] [facility] [place] [address] Cinthia Frias MD [address] [phone] Type 2 diabetes mellitus without complications (CMS/HCC [...] Procedure Name Priority Date/Time Associated Diagnosis Comments COMPLETE BLOOD COUNT Routine 08/01/2024 9:41 AM EDT Type 2 diabetes mellitus without complications (CMS/HCC V24, CMS/HCC V28) BASIC METABOLIC PANEL Routine 08/01/2024 9:41 AM EDT Type 2 diabetes mellitus without complications (CMS/HCC V24, CMS/HCC V28) documented in this encounter Results * (ABNORMAL) Basic metabolic panel (08/01/2024 9:41 AM EDT) Sodium 137 133 - 145 mmol/L LAB CHEMISTRY METHOD 08/01/2024 2:11 PM [facility] Potassium 4.2 3.5 - 5.5 mmol/L LAB CHEMISTRY METHOD 08/01/2024 2:11 PM [facility] Chloride 102 96 - 110 mmol/L LAB CHEMISTRY METHOD 08/01/2024 2:11 PM [facility] CO2 29 21 - 32 mmol/L LAB CHEMISTRY METHOD 08/01/2024 2:11 PM [facility] Anion Gap 6 3 - 11 LAB CHEMISTRY METHOD 08/01/2024 2:11 PM [facility] Glucose 274(H) 70 - 100 mg/dL LAB CHEMISTRY METHOD 08/01/2024 2:11 PM [facility] BUN 17 5 - 25 mg/dL LAB CHEMISTRY METHOD 08/01/2024 2:11 PM [facility] Creatinine 0.99 0.50 - 1.10 mg/dL LAB CHEMISTRY METHOD 08/01/2024 2:11 PM [facility] eGFR 63 >=60 mL/min/1. 73m2 LAB CHEMISTRY METHOD 08/01/2024 2:11 PM [facility] Comment:Calculation based on the Chronic Kidney Disease Epidemiology Collaboration (CKD-EPI) equation refit without adjustment for race. BUN/Creatinine Ratio 17.2 LAB CHEMISTRY METHOD 08/01/2024 2:11 PM [facility] Calcium 9.8 8.5 - 10.5 mg/dL LAB CHEMISTRY METHOD 08/01/2024 2:11 PM [facility] Blood Venous blood specimen / Unknown Venipuncture / Unknown 08/01/2024 9:41 AM EDT 08/01/2024 10:54 AM EDT Cinthia Frias MD LAB BLOOD ORDERABLES Fin al Result [facility] [address] [place] [address], * (ABNORMAL) Complete blood count (08/01/2024 9:41 AM EDT) [facility] Signature WBC 6.5 4.8 - 10.8 K/mcL LAB HEMETOLOGY METHOD 08/01/2024 12:39 PM EDT [facility] RBC 4.60 3.80 - 4.80 M/mcL LAB HEMETOLOGY METHOD 08/01/2024 12:39 PM EDT [facility] Hemoglobin 13.3 11.5 - 16.0 g/dL LAB HEMETOLOGY METHOD 08/01/2024 12:39 [facility] Hematocrit 41.7 35.0 - 47.0 % LAB HEMETOLOGY METHOD 08/01/2024 12:39 PM EDT [facility] MCV 90.3 79.0 - 98.0 FL LAB HEMETOLOGY METHOD 08/01/2024 12:39 PM EDT [facility] MCH 28.8 27.0 - 32.0 pcg LAB HEMETOLOGY METHOD 08/01/2024 12:39 PM [facility] MCHC 31.9(L) 32.0 - 37.0 g/dL LAB HEMETOLOGY METHOD 08/01/2024 12:39 PM EDT [facility] RDW 13.6 11.0 - 15.0 % LAB HEMETOLOGY METHOD 08/01/2024 12:39 PM EDT [facility] Platelets 286 130 - 400 K/mcL LAB HEMETOLOGY METHOD 08/01/2024 12:39 PM EDT [facility] MPV 10.1 7.0 - 11.0 FL LAB HEMETOLOGY METHOD 08/01/2024 12:39 PM EDT [facility] NRBC 0.0 <1.0 % LAB HEMETOLOGY METHOD 08/01/2024 12:39 PM EDT [facility] NRBC Absolute 0.00 <0.10 K/mcL LAB HEMETOLOGY METHOD 08/01/2024 12:39 PM EDT [facility] Blood Venous blood specimen / Unknown Venipuncture / Unknown 08/01/2024 9:41 AM EDT 08/01/2024 10:54 AM EDT us Cinthia Frias MD LAB BLOOD ORDERABLES Fin al Result [facility] [address] [place] [address], documented in this encounter Visit Diagnoses Diagnosis Type 2 diabetes mellitus without complications (CMS/HCC V24, CMS/HCC V28) documented in this encounter Care Teams Pan Greaser Relationship Specialty Start Date End Date Cinthia Frias MD PCP - General Family Medicine 08/01/24 documented as of this encounter
--- OUTSIDE RECORDS SUMMARY | 2025-03-22 13:11 | XMS_ITS | Encounter Summary ---
Author Organization [facility] Address [address] [place] [address] Care Team Providers Care Merchandiser Name Role Phone Cinthia Frias MD Primary Care Provider + Encounter Details Date Type Department Care Team (Late st Contact Info) Description 09/19/[address] [facility] - Main Lab [address] [facility] [place] [address] Cinthia Frias MD [address] [address] Dizziness and giddiness Social History Tobacco Use Types Packs/Day Years [...] Procedure Name Priority Date/Time Associated Diagnosis Comments CBC WITH AUTO DIFFERENTIAL Routine 09/20/2024 6:03 AM EDT Dizziness and giddiness CBC AND DIFFERENTIAL Routine 09/20/2024 6:03 AM EDT Dizziness and giddiness MAGNESIUM Routine 09/20/2024 6:03 AM EDT Dizziness and giddiness BASIC METABOLIC PANEL Routine 09/20/2024 6:03 AM EDT Dizziness and giddiness documented in this encounter Results * (ABNORMAL) CBC auto differential (09/20/2024 6:03 AM EDT) WBC 6.4 4.8 - 10.8 K/mcL LAB [facility]OLOGY [facility] RBC 4.30 3.80 - 4.80 M/mcL LAB HEMETOLOGY METHOD 09/20/2024 8:58 AM EDT [facility] Hemoglobin 12.3 11.5 - 16.0 g/dL LAB HEMETOLOGY METHOD 09/20/2024 8:58 AM [facility] Hematocrit 38.4 35.0 - 47.0 % LAB HEMETOLOGY METHOD 09/20/2024 8:58 AM [facility] MCV 89.7 79.0 - 98.0 FL LAB HEMETOLOGY METHOD 09/20/2024 8:58 [facility] MCH 28.7 27.0 - 32.0 pcg LAB HEMETOLOGY METHOD 09/20/2024 8:58 AM [facility] MCHC 32.0 32.0 - 37.0 g/dL LAB HEMETOLOGY METHOD 09/20/2024 8:58 AM [facility] RDW 13.2 11.0 - 15.0 % LAB HEMETOLOGY METHOD 09/20/2024 8:58 AM [facility] Platelets 257 130 - 400 K/mcL LAB HEMETOLOGY METHOD 09/20/2024 8:58 AM [facility] MPV 10.0 7.0 - 11.0 FL LAB HEMETOLOGY METHOD 09/20/2024 8:58 [facility] NRBC 0.0 <1.0 % LAB HEMETOLOGY METHOD 09/20/2024 8:58 AM [facility] NRBC Absolute 0.00 <0.10 K/mcL LAB HEMETOLOGY METHOD 09/20/2024 8:58 AM T [facility] Neutrophils Relative 58.4 % LAB HEMETOLOGY METHOD 09/20/2024 8:58 AM [facility] Lymphocytes Relative 27.7 % LAB HEMETOLOGY METHOD 09/20/2024 8:58 AM [facility] Monocytes Relative 8.6 % LAB HEMETOLOGY METHOD 09/20/2024 8:58 AM [facility] Eosinophils Relative 3.9 % LAB HEMETOLOGY METHOD 09/20/2024 8:58 AM [facility] Basophils Relative 0.8 % LAB HEMETOLOGY METHOD 09/20/2024 8:58 AM [facility] Immature Granulocytes Relative 0.6 % LAB HEMETOLOGY METHOD 09/20/2024 8:58 AM [facility] Neutrophils Absolute 3.76 1.50 - 7.00 K/mcL LAB HEMETOLOGY METHOD 09/20/2024 8:58 AM [facility] Lymphocytes Absolute 1.78 1.00 - 5.00 K/mcL LAB HEMETOLOGY METHOD 09/20/2024 8:58 AM [facility] Monocytes Absolute 0.55 0.20 - 1.00 K/mcL LAB HEMETOLOGY METHOD 09/20/2024 8:58 AM [facility] Eosinophils Absolute 0.25 0.00 - 0.50 K/mcL LAB HEMETOLOGY METHOD 09/20/2024 8:58 AM [facility] Basophils Absolute 0.05 0.00 - 0.20 K/mcL LAB HEMETOLOGY METHOD 09/20/2024 8:58 AM [facility] Immature Granulocytes Absolute 0.04(H) 0.00 - 0.03 K/mcL LAB HEMETOLOGY METHOD 09/20/2024 8:58 AM EDT [facility] Blood Venous blood specimen / Unknown Venipuncture / Unknown 09/20/2024 6:03 AM EDT 09/20/2024 8:19 AM EDT Cinthia Frias MD LAB BLOOD ORDERABLES Fin al Result Performing Organization Address City/[facility]/ZIP Co de Phone Number [facility] [address] [place] [address], [place] [phone] * Magnesium (09/20/2024 6:03 AM EDT) Pathologist [facility] Magnesium 1.9 1.9 - 2.6 mg/dL LAB CHEMISTRY METHOD 09/20/2024 9:11 AM EDT [facility] Blood Venous blood specimen / Unknown Venipuncture / Unknown 09/20/2024 6:03 AM EDT 09/20/2024 8:19 AM EDT Cinthia Frias MD LAB BLOOD ORDERABLES Fin al Result Performing Organization Address City/[facility]/ZIP Co de Phone Number [facility] [address] [place] [address], [place] [phone] * (ABNORMAL) Basic metabolic panel (09/20/2024 6:03 AM EDT) Pathologist [facility] Sodium 142 133 - 145 mmol/L LAB CHEMISTRY METHOD 09/20/2024 9:11 AM EDT [facility] Potassium 4.0 3.5 - 5.5 mmol/L LAB CHEMISTRY METHOD 09/20/2024 9:11 AM EDT [facility] Chloride 108 96 - 110 mmol/L LAB CHEMISTRY METHOD 09/20/2024 9:11 AM EDT [facility] CO2 27 21 - 32 mmol/L LAB CHEMISTRY METHOD 09/20/2024 9:11 AM EDT [facility] Anion Gap 7 3 - 11 LAB CHEMISTRY METHOD 09/20/2024 9:11 AM [facility] Glucose 148(H) 70 - 100 mg/dL LAB CHEMISTRY METHOD 09/20/2024 9:11 AM [facility] BUN 13 5 - 25 mg/dL LAB CHEMISTRY METHOD 09/20/2024 9:11 AM [facility] Creatinine 0.98 0.50 - 1.10 mg/dL LAB CHEMISTRY METHOD 09/20/2024 9:11 AM [facility] eGFR 64 >=60 mL/min/1. 73m2 LAB CHEMISTRY METHOD 09/20/2024 9:11 AM [facility] Comment:Calculation based on the Chronic Kidney Disease Epidemiology Collaboration (CKD-EPI) equation refit without adjustment for race. BUN/Creatinine Ratio 13.3 LAB CHEMISTRY METHOD 09/20/2024 9:11 AM [facility] Calcium 8.5 8.5 - 10.5 mg/dL LAB CHEMISTRY METHOD 09/20/2024 9:11 AM [facility] Blood Venous blood specimen / Unknown Venipuncture / Unknown 09/20/2024 6:03 AM EDT 09/20/2024 8:19 AM EDT us Cinthia Frias MD LAB BLOOD ORDERABLES Fin al Result [facility] [address] [place] [address], documented in this encounter Visit Diagnoses Diagnosis Dizziness and giddiness documented in this encounter Care Teams Merchandiser Relationship Specialty Start Date End Date Cinthia Frias MD PCP - General Family Medicine 08/01/24 documented as of this encounter
--- OUTSIDE RECORDS SUMMARY | 2025-03-22 13:11 | XMS_ITS | Encounter Summary ---
Author Organization [facility] Address [address] [place] [address] Care Team Providers Care Buckle Attaching Machine Operator Name Role Phone Cinthia Frias MD Primary Care Provider + Encounter Details Date Type Department Care Team (Late st Contact Info) Description 03/08/2024 Lab Requisition [facility] - Main Lab [address] [place] [address] Cinthia Frias MD [address] [address] Essential (primary) hypertension Social History Tobacco Use Types Packs/Day Years [...] Associated Diagnosis Comments COMPLETE BLOOD COUNT Routine 03/08/2024 7:00 AM EST Essential (primary) hypertension BASIC METABOLIC PANEL Routine 03/08/2024 7:00 AM EST Essential (primary) hypertension documented in this encounter Results * (ABNORMAL) Basic metabolic panel (03/08/2024 7:00 AM EST) Sodium 136 133 - 145 mmol/L LAB CHEMISTRY METHOD 03/08/2024 9:39 AM [facility] Potassium 4.3 3.5 - 5.5 mmol/L LAB CHEMISTRY METHOD 03/08/2024 9:39 AM [facility] Chloride 100 96 - 110 mmol/L LAB CHEMISTRY METHOD 03/08/2024 9:39 AM [facility] CO2 28 21 - 32 mmol/L LAB CHEMISTRY METHOD 03/08/2024 9:39 AM [facility] Anion Gap 8 3 - 11 LAB CHEMISTRY METHOD 03/08/2024 9:39 AM [facility] Glucose 299(H) 70 - 100 mg/dL LAB CHEMISTRY METHOD 03/08/2024 9:39 AM [facility] BUN 13 5 - 25 mg/dL LAB CHEMISTRY METHOD 03/08/2024 9:39 AM [facility] Creatinine 1.08 0.50 - 1.10 mg/dL LAB CHEMISTRY METHOD 03/08/2024 9:39 AM [facility] eGFR 57(L) >=60 mL/min/1. 73m2 LAB CHEMISTRY METHOD 03/08/2024 9:39 AM [facility] Comment:Calculation based on the Chronic Kidney Disease Epidemiology Collaboration (CKD-EPI) equation refit without adjustment for race. BUN/Creatinine Ratio 12.0 LAB CHEMISTRY METHOD 03/08/2024 9:39 AM [facility] Calcium 9.6 8.5 - 10.5 mg/dL LAB CHEMISTRY METHOD 03/08/2024 9:39 AM [facility] Blood Venous blood specimen / Unknown Venipuncture / Unknown 03/08/2024 7:00 AM EST 03/08/2024 8:33 AM EST us Cinthia Frias MD LAB BLOOD ORDERABLES Fin al Result [facility] [address] [place] [address], * (ABNORMAL) Complete blood count (03/08/2024 7:00 AM EST) [facility] WBC 6.7 4.8 - 10.8 K/mcL LAB HEMETOLOGY METHOD 03/08/2024 9:18 AM [facility] RBC 4.40 3.80 - 4.80 M/mcL LAB HEMETOLOGY METHOD 03/08/2024 9:18 AM [facility] Hemoglobin 11.7 11.5 - 16.0 g/dL LAB HEMETOLOGY METHOD 03/08/2024 9:18 AM [facility] Hematocrit 37.8 35.0 - 47.0 % LAB HEMETOLOGY METHOD 03/08/2024 9:18 AM [facility] MCV 86.9 79.0 - 98.0 FL LAB HEMETOLOGY METHOD 03/08/2024 9:18 AM [facility] MCH 26.9(L) 27.0 - 32.0 pcg LAB HEMETOLOGY METHOD 03/08/2024 9:18 AM [facility] MCHC 31.0(L) 32.0 - 37.0 g/dL LAB HEMETOLOGY METHOD 03/08/2024 9:18 AM [facility] RDW 14.6 11.0 - 15.0 % LAB HEMETOLOGY METHOD 03/08/2024 9:18 AM [facility] Platelets 258 130 - 400 K/mcL LAB HEMETOLOGY METHOD 03/08/2024 9:18 AM [facility] MPV 10.3 7.0 - 11.0 FL LAB HEMETOLOGY METHOD 03/08/2024 9:18 AM [facility] NRBC 0.0 <1.0 % LAB HEMETOLOGY METHOD 03/08/2024 9:18 AM [facility] NRBC Absolute 0.00 <0.10 K/mcL LAB HEMETOLOGY METHOD 03/08/2024 9:18 AM EST [facility] Blood Venous blood specimen / Unknown Venipuncture / Unknown 03/08/2024 7:00 AM EST 03/08/2024 8:33 AM EST us Cinthia Frias MD LAB BLOOD ORDERABLES Fin al Result [facility] [address] [place] [address], documented in this encounter Visit Diagnoses Diagnosis Essential (primary) hypertension Unspecified essential hypertension documented in this encounter Care Teams Buckle Attaching Machine Operator Relationship Specialty Start Date End Date Cinthia Frias MD PCP - General Family Medicine 08/01/24 documented as of this encounter
--- OUTSIDE RECORDS SUMMARY | 2025-03-22 13:11 | XMS_ITS | Clinical Summary ---
Author Organization [facility] [address] [place] [address] Address [address] [place] [address] Phone Care Team Providers Care Trimmer Hand Name Role Phone Elder, Cinthia Patel MD Primary Care Provider + Allergies No known active allergies Medications albuterol HFA (PROAIR HFA ; PROVENTIL HFA ; VENTOLIN HFA) 90 mcg/actuation inhaler Inhale 2 Puffs into the lungs 4 times daily as needed. asthma/wheezing 0 Active meclizine (ANTIVERT) 25 mg tablet 1 TABLET 3 TIMES DAILY NEEDED 9 Active azelastine (ASTELIN) 137 mcg (0.1 %) nasal spray 2 Sprays 2 times daily. Use in each nostril as directed 0 Active pseudoephed/acet aminoph/diphen (BENADRYL [id number] ADACH ORAL) prn Active LANCETS MISC test blood sugars tid 9 Active fluticasone HFA (Flovent HFA) 44 mcg/actuation inhaler 1 puff twic a day 9 Active OneTouch Ultra Test test strip test bid 9 Active ONETOUCH ULTRASOFT LANCETS MISC test bid 9 Active hydrocortisone acetate (Proctocort) 30 mg suppository 1 SUPPOSITORY MORNING AND AT BEDTIME NEEDED 9 Active traZODone (DESYREL) 100 mg tablet Take 1-2 Tabs by mouth at bedtime. 0 Active valsartan (DIOVAN) 80 mg tablet 1 TABLET DAILY 0 Active triamcinolone (NASACORT) 55 mcg nasal inhaler 2 sprays qd 0 Active Active Problems Problem Noted Date Diagnosed Date Essential hypertension, benign 09/14/2008 Dizziness 09/14/2008 Overview (05/04/2024): Since age 7, s/p hearing test, [place] 2008 Controlled diabetes mellitus type II without complication ([facility] V24, [facility] V28) 07/13/2008 Carpal tunnel syndrome 02/03/2007 Overview (05/04/2024): s/p bilateral surgery Idiopathic scoliosis and kyphoscoliosis 01/27/20 06 Primary localized osteoarthrosis, hand 6 Overview (05/04/2024): 6 surgeries, fused 1st MP jt. Dr. Barragan Allergic rhinitis 01/26/2006 Pure hypercholesterolemia 10/14/2005 Tobacco use disorder 10/14/2005 Encounters Date Type Department Care Team Description 02/09/2025 Telephone [facility] [address] [place] [address] Nagi Almeida MD from Last 3 Months Immunizations Immunization Administration Dates Next Due Influenza trivalent, with pr eservative (Fluzone; Afluria) 6mo and older 12/23/2014,01/25/2010,05/03/2008 Td, Unspecified 04/20/2003 Surgical History Surgery Date Site/Laterality Comments SECTION PROCEDURE: ID DELIVERY ONLY; COMMENT: x 2 UMBILICAL HERNIA REPAIR PROCEDURE: LAP UMBILICAL HERNIA REPAIR CARPAL TUNNEL RELEASE PROCEDURE: HISTORICAL CARPAL TUNNEL REL TUBAL LIGATION PROCEDURE: HISTORICAL TUBAL LIGATION CHOLECYSTECTOMY PROCEDURE: ID CHOLECYSTECTOMY COLONOSCOPY 01/30/09 PROCEDURE: HISTORICAL COLONOSCOPY; COMMENT: hemorrhoids Medical History Medical History Date Comments Tobacco use disorder 10/14/2005 DX:Tobacco use disorder; COMMENT: 23 pack years Pure hypercholesterolemia 10/14/2005 DX:Pur e hypercholesterolemia Sciatica 01/26/2006 DX:Sciatica Scoliosis (and kyphoscoliosi s), idiopathic 01/26/2006 DX:Scoliosis (and kyphoscoli osis), idiopathic Allergic rhinitis, cause unspecified 01/26/2006 DX:Allergic rhinitis, cause unspecified Carpal tunnel syndrome 02/03/2007 DX:Carpal tunnel syndrome; COMMENT: s/p bilateral surgery Dizziness 09/14/2008 DX:Dizziness; CO MMENT: Since age 7, s/p hearing test, CT 2008 Type II or unspecified type diabetes mellitus without mention of complication, not stated as uncontrolled 07/13/2008 DX:Type II or unspecified ty pe diabetes mellitus without mention of complication, not stated as uncontrolled Amblyopia, unspecified DX:Amblyo vidal, unspecified; COMMENT: left Essential hypertension, benign 09/14/2008 D X:Essential hypertension, benign Family History Medical History Relation Name Comments Diabetes Father Breast cancer Maternal Grandfather Breast cancer Mother Cataracts Mother Heart attack Mother Other cancer Mother KIDNEY Cataracts Sister 1 Thyroid disease Sister 1 Thyroid disease Sister 2 Thyroid disease Sister 3 Thyroid disease Sister 4 Diabetes Sister 5 x2 Blindness Neg Hx Glaucoma Neg Hx Macular degeneration Neg Hx Strabismus Neg Hx Relation Name Status Comments Father Maternal Grandfather Maternal Grandmother Mother Paternal Grandfather Paternal Grandmother Sister 1 Sister 2 Sister 3 Sister 4 Sister 5 Sister 6 Alive Sister 7 Alive Sister 8 Alive Sister 9 Alive Social History Tobacco Use Types Packs/Day Years Used Date Smoking Tobacco: Every Day Cigarettes Alcohol Use Standard Drinks/Week Comments No 0 (1 standard drink = 0.6 oz pur e alcohol) Comments Unknown Sex and Gender Information Value Date Recorded Sex Assigned at Not on file Legal Sex Female 3:23 PM EST Gender Identity Not on file Sexual Orientation Not on file Obstetrics History Last Filed Vital Signs Vital Sign Reading Time Taken Comments Blood Pressure 148/70 06/10/2024 7:10 PM EST Pulse 87 06/10/2024 7:10 PM EST Temperature 36.5 C (97.7 F) 06/10/2024 7:10 PM EST Respiratory Rate 16 06/10/2024 7:10 PM EST Oxygen Saturation 96% 06/10/2024 7:10 PM EST Inhaled Oxygen Concentration - - Weight 63.5 kg (140 lb) 06/10/2024 7:10 PM EST Height 157.5 cm (5' 2 ) 06/10/2024 7:10 PM EST Body Mass Index 25.61 06/10/2024 7:10 PM EST Plan of Treatment Health Maintenance Due Date Last Done Comments Breast Cancer Screening 1958 Diabetes: Annual Foot Exam 1968 Diabetes: Annual Retina Eye Exam 1968 Hepatitis A Vaccines (1 of 2 - Risk 2-dose series) 1977 RSV Immunization Adult Patients (1 - Risk 50-74 years 1-dose series) 2008 Zoster Vaccines (1 of 2) 2008 Pneumococcal Vaccine: 50+ Years (2 of 2 - PCV) 01/02/2015 01/02/2014 Hepatitis B Vaccines (1 of 3 - Risk 3-dose series) 2018 Hepatitis C Screening 03/19/2022 Medicare Annual Wellness Visit 03/19/2022 Osteoporosis Screening (Bone Density Screening) 03/19/2022 Social Influencers of Health Screening 03/19/2022 Diabetes: Annual Urine Albumin-Creatinine Ratio (uACR) 03/26/2022 09/13/2008 Falls Risk Assessment 07/16/2023 Depression Screening 04/20/2024 Colorectal Cancer Screening: Colonoscopy 07/12/2024 07/12/2014, 01/30/2009 COVID-19 Vaccine ( - season) 2024 09/19/2020, 08/21/2020 Influenza Vaccine (#1) 2024, 06/10/2022, 04/25/2019, Additional history exists DTaP,Tdap,and Td Vaccines (4 - Td or Tdap) 12/23/2024 12/23/2014, 05/03/2013, 04/20/2003 Diabetes: Blood Sugar Control Test (HGBA1C) 05/24/2025 11/21/2024, 08/03/2024, 03/10/2024 Diabetes: Annual GFR (Glomerular Filtration Rate) 11/21/2025 11/21/2024, 09/20/2024, 08/01/2024, Additional history exists Hypertension/CHF/CAD Annual BMP Blood Test 11/21/2025 11/21/2024, 09/20/2024, 08/01/2024, Additional history exists Cholesterol Screening (Lipid Panel) 11/21/2029 11/21/2024, 07/09/2009 HIB Vaccines Aged Out No longer eligi ble based on patient's age to complete this topic HPV Vaccines Aged Out No longer eligi ble based on patient's age to complete this topic IPV Vaccines Aged Out No longer eligi ble based on patient's age to complete this topic MMR Vaccines Aged Out No longer eligi ble based on patient's age to complete this topic Meningococcal ACWY Vaccine Aged Out N o longer eligible based on patient's age to complete this topic Meningococcal B Vaccine Aged Out No l onger eligible based on patient's age to complete this topic RSV Immunization Patients Under 20 months Aged Out No longer eligible based on patient's age to complete this topic Varicella Vaccines Aged Out No longer eligible based on patient's age to complete this topic Procedures Procedure Name Priority Date/Time Associated Diagnosis Comments BASIC METABOLIC PANEL Routine 11/21/2024 5:44 AM EDT Type 2 diabetes mellitus without complications ([facility] V24, [facility] V28) HEMOGLOBIN A1C Routine 11/21/2024 5:44 AM EDT Type 2 diabetes mellitus without complications ([facility] V24, [facility] V28) LIPID PANEL WITH REFLEX TO DIRECT LDL Routine 11/21/2024 5:44 AM EDT Type 2 diabetes mellitus without complications ([facility] V24, [facility] V28) COLONOSCOPY Routine 01/30/2009 URINE ALBUMIN CREATININE RATIO Routine 09/13/2008 from Last 3 Months or Most Recently Relevant to Health Maintenance Results * (ABNORMAL) Lipid panel with reflex to direct LDL (11/21/2024 5:44 AM EDT) Cholesterol 243(H) 0 - 200 mg/dL LAB CHEMISTRY METHOD 11/21/2024 1:34 PM EDT [facility] Triglycerides 209(H) 0 - 150 mg/dL LAB CHEMISTRY METHOD 11/21/2024 1:34 PM EDT [facility] HDL 64 >=40 mg/dL LAB CHEMISTRY METHOD 11/21/2024 1:34 PM EDT [facility] LDL Calculated 137(H) 0 - 100 mg/dL LAB CHEMISTRY METHOD 11/21/2024 1:34 PM EDT [facility] VLDL Cholesterol Moncho 41.8 mg/dL LAB CHEMISTRY METHOD 11/21/2024 1:34 PM EDT [facility] Non HDL Chol. (LDL+VLDL) 179(H) <145 mg/dL LAB CHEMISTRY METHOD 11/21/2024 1:34 PM EDT [facility] Chol/HDL Ratio 3.8 0.0 - 4.4 LAB CHEMISTRY METHOD 11/21/2024 1:34 PM EDT [facility] Blood Venous blood specimen / Unknown Venipuncture / Unknown 11/21/2024 5:44 AM EDT 11/21/2024 11:09 AM EDT Cinthia Frias MD LAB BLOOD ORDERABLES Fin al Result Performing Organization Address [facility]/ZIP Co de Phone Number [facility] [address] [place] [address], [place] [phone] * (ABNORMAL) Hemoglobin A1c (11/21/2024 5:44 AM EDT) [facility] Signature Hemoglobin A1C 8.7(H) <6.5 % LAB CHEMISTRY METHOD 11/21/2024 2:00 PM EDT [facility] Mean Bld Glu Estim. 203 mg/dL LAB CHEMISTRY METHOD 11/21/2024 2:00 PM EDT [facility] Blood Venous blood specimen / Unknown Venipuncture / Unknown 11/21/2024 5:44 AM EDT 11/21/2024 11:09 AM EDT Cinthia Frias MD LAB BLOOD ORDERABLES Fin al Result Performing Organization Address [facility]/ZIP Co de Phone Number [facility] [address] [place] [address], [place] [phone] * (ABNORMAL) Basic metabolic panel (11/21/2024 5:44 AM EDT) Sodium 140 133 - 145 mmol/L LAB CHEMISTRY METHOD 11/21/2024 1:[address] [facility] Potassium 4.1 3.5 - 5.5 mmol/L LAB CHEMISTRY METHOD 11/21/2024 1:[address] [facility] Chloride 104 96 - 110 mmol/L LAB CHEMISTRY METHOD 11/21/2024 1:[address] [facility] CO2 28 21 - 32 mmol/L LAB CHEMISTRY METHOD 11/21/2024 1:[address] [facility] Anion Gap 8 3 - 11 LAB CHEMISTRY METHOD 11/21/2024 1:[address] [facility] Glucose 100 70 - 100 mg/dL LAB CHEMISTRY METHOD 11/21/2024 1:[address] [facility] BUN 20 5 - 25 mg/dL LAB CHEMISTRY METHOD 11/21/2024 1:[address] [facility] Creatinine 1.04 0.50 - 1.10 mg/dL LAB CHEMISTRY METHOD 11/21/2024 1:[address] [facility] eGFR 59(L) >=60 mL/min/1. 73m2 LAB CHEMISTRY METHOD 11/21/2024 1:[address] [facility] Comment:Calculation based on the Chronic Kidney Disease Epidemiology Collaboration (CKD-EPI) equation refit without adjustment for race. BUN/Creatinine Ratio 19.2 LAB CHEMISTRY METHOD 11/21/2024 1:[address] [facility] Calcium 9.4 8.5 - 10.5 mg/dL LAB CHEMISTRY METHOD 11/21/2024 1:[address] [facility] Blood Venous blood specimen / Unknown Venipuncture / Unknown 11/21/2024 5:44 AM EDT 11/21/2024 11:09 AM EDT Cinthia Frias MD LAB BLOOD ORDERABLES Fin al Result [facility] [address] [place] [address], [place] [phone] * Colonoscopy (01/30/2009) Colonoscopy No interpretation , abstracted Anatomical Region Laterality Modality Other Historical Provider HEALTH MAINTENANCE Final Result * Urine Albumin Creatinine Ratio (09/13/2008) Urine Albumin Creatinine Ratio abstracted Historical Provider HEALTH MAINTENANCE Final Result from Last 3 Months or Most Recently Relevant to Health Maintenance Insurance MEDICA[place] - [place] MEDICARE Advance Directives Documents on File Type Date Recorded Patient Miter Sawyer Expl anation Advance Directives and Living Will 06/13/2024 3:12 PM [facility] Health Care Decision (hx) 05/03/2018 AD MEEKS DIRECTIVE Health Care Decision (hx) 05/03/2018 AD MEEKS DIRECTIVE Health Care Decision (hx) 05/03/2018 AD MEEKS DIRECTIVE Care Teams Trimmer Hand Relationship Specialty Start Date End Date Cinthia Frias MD PCP - General Family Medicine 08/01/24
--- OUTSIDE RECORDS SUMMARY | 2025-03-22 13:12 | XMS_ITS | Encounter Summary ---
Author Organization [facility] Address [address] [place] [address] Care Team Providers Care Turf And Grounds Supervisor Name Role Phone Elder, Cinthia Patel MD Primary Care Provider + Encounter Details Date Type Department Care Team (Latest Contact Info) Description 08/03/2024 Lab Requisition [facility] - Main Lab [address] [place] [address] Thomas Lynch MD [address] [place] [id number] Type 2 diabetes mellitus without complications (CMS/HCC V24, [facility] V28) Social History Tobacco Use Types Packs/Day [...] Date/Time Associated Diagnosis Comments HEMOGLOBIN A1C Routine 08/03/2024 5:50 AM EDT Type 2 diabetes mellitus without complications (CMS/HCC V24, [facility] V28) documented in this encounter Results * (ABNORMAL) Hemoglobin A1c (08/03/2024 5:50 AM EDT) Hemoglobin A1C 9.4(H) <6.5 % LAB CHEMISTRY METHOD 08/03/2024 12:22 PM EDT [facility] Mean Bld Glu Estim. 223 mg/dL LAB CHEMISTRY METHOD 08/03/2024 12:[address] [facility] Blood Venous blood specimen / Unknown Venipuncture / Unknown 08/03/2024 5:50 AM EDT 08/03/2024 8:44 AM EDT us Thomas Lynch MD LAB BLOOD ORDERABLES Final Resu lt [facility] [address] [place] [address], documented in this encounter Visit Diagnoses Diagnosis Type 2 diabetes mellitus without complications (CMS/HCC V24, CMS/HCC V28) documented in this encounter Care Teams Turf And Grounds Supervisor Relationship Specialty Start Date End Date Cinthia Frias MD PCP - General Family Medicine 08/01/24 documented as of this encounter
== END 2025-03-22 12:20 | disposition home or self-care (01) ==
LOC: HO.HMCFMS 11:05
PROVIDERS: PCP Student in an Organized Health Care Education/Training Program; Visit Provider Student in an Organized Health Care Education/Training Program
DX: E11.9 Type 2 diabetes mellitus without complications (principal); F32.9 Major depressive disorder, single episode, unspecified; Z86.73 Personal history of transient ischemic attack (TIA), and cerebral infarction without residual deficits; G89.29 Other chronic pain; M25.541 Pain in joints of right hand; M25.542 Pain in joints of left hand; M25.521 Pain in right elbow; R26.81 Unsteadiness on feet; Z99.3 Dependence on wheelchair; R42 Dizziness and giddiness; M79.7 Fibromyalgia; K59.09 Other constipation; M19.90 Unspecified osteoarthritis, unspecified site; M51.369 Other intervertebral disc degeneration, lumbar region without mention of lumbar back pain or lower extremity pain; M54.12 Radiculopathy, cervical region; F41.1 Generalized anxiety disorder

== ENCOUNTER 2025-03-22 11:04 | Outpatient (REF) | payer MEDICARE, MEDICAID, SELFPAY ==
[2025-03-22 18:36] LABS: MANUAL DIFF FLAG NO
[2025-03-22 19:06] LABS: Alanine Aminotransferase 36 U/L (0-31); Albumin Level 5.0 g/dL (3.5-5.0); Alkaline Phosphatase 90 U/L (39-117); Anion Gap 15 (12-20); Aspartate Amino Transferase 32 U/L (5-31); Blood Urea Nitrogen 14 mg/dL (9-16); Calcium 9.8 mg/dL (8.4-10.2); Carbon Dioxide 24 mmol/L (22-29); Chloride 103 mmol/L (96-108); Cholesterol 218 mg/dL (<200); Estimated Glomerular Filt Rate 58; HDL Cholesterol 61 mg/dL (>40); Magnesium 2.1 mg/dL (1.6-2.6); Potassium 4.0 mmol/L (3.3-5.1); Sodium 138 mmol/L (135-145); Total Protein 8.3 g/dL (6.5-8.0); Triglycerides 230 mg/dL (<150)
[2025-03-22 19:18] LABS: Hematocrit 41.1 % (37.0-47.0); Hemoglobin 13.2 g/dl (12.0-16.0); Imm Gran Abs Auto 0.05 X10*3/uL (0.00-0.03); Imm Gran Pct Auto 0.6 % (0.0-0.4); Lymphocytes Absolute Auto 1.9 X10*3/uL (1.2-4.9); Mean Corpuscular HGB Conc 32.1 g/dl (31.0-35.0); Mean Corpuscular Hemoglobin 28.3 pg (27.0-33.0); Mean Corpuscular Volume 88.0 fL (80.0-98.0); NRBC Abs Auto 0.000 X10*3/uL (0.0-0.012); NRBC Pct Auto 0.0 /100WBC (0.0-0.2); Platelet Count 303 X10*3/uL (160-400); Red Blood Count 4.67 X10*6/uL (4.20-5.50); White Blood Count 8.2 X10*3/uL (4.8-10.8)
[2025-03-22 19:43] LABS: Folate 7.9 ng/mL (> or = 4.0); Vitamin B12 354 pg/mL (200-900)
[2025-03-23 06:33] LABS: Syphilis Screen Nonreactive (Nonreactive)
[2025-03-23 06:51] LABS: HBS Num1 0.00 mIU/mL (0-7.99); HBsAGNum1 0.49 S/CO (0.00-0.99); HIV Num 1 0.07 S/CO (0.00-0.99); Hepatitis B Surface Antigen Negative (Negative); ~HepC Num1 0.13 S/CO (0.00-0.79); ~Hepatitis B Surface Antibody NONREACTIVE (Nonreactive); ~Hepatitis C Antibody Nonreactive (Nonreactive)
[2025-03-23 10:44] LABS: Rubeola IgG (Measles) >300.00 AU/mL
[2025-03-25 05:09] LABS: Quantiferon TB Gold Plus 1 NEGATIVE (NEGATIVE); TB Test (QFT) Mitogen -Nil 7.69 IU/mL; TB Test (QFT) Nil 0.03 IU/mL; TB Test (QFT) Plus TB1 -Nil <0.00 IU/mL; TB Test (QFT) Plus TB2 -Nil <0.00 IU/mL
[2025-03-26 14:23] LABS: VITAMIN D (1,25 OH) D3 35 pg/mL; Vit D (1,25-Dihydroxy) Total 35 pg/mL (18-72); Vitamin D (1,25 OH) D2 <8 pg/mL
== END 2025-03-22 11:05 | disposition home or self-care (01) ==
LOC: HO.HKASLDS 11:04
PROVIDERS: PCP Student in an Organized Health Care Education/Training Program; Visit Provider Student in an Organized Health Care Education/Training Program
DX: Z13.9 Encounter for screening, unspecified (principal); E11.9 Type 2 diabetes mellitus without complications; F32.9 Major depressive disorder, single episode, unspecified; G89.29 Other chronic pain; M25.541 Pain in joints of right hand; M25.542 Pain in joints of left hand; M25.521 Pain in right elbow; R26.81 Unsteadiness on feet; R42 Dizziness and giddiness; M79.7 Fibromyalgia; K59.09 Other constipation; M19.90 Unspecified osteoarthritis, unspecified site; M51.369 Other intervertebral disc degeneration, lumbar region without mention of lumbar back pain or lower extremity pain; M54.12 Radiculopathy, cervical region; F41.1 Generalized anxiety disorder; Z99.3 Dependence on wheelchair; Z86.73 Personal history of transient ischemic attack (TIA), and cerebral infarction without residual deficits
CPT/HCPCS: 36415; 80053; 80061; 82607; 82652; 82746; 83036; 83735; 84443; 85025; 86480; 86706; 86735; 86762; 86765; 86780; 86787; 86803; 87340; 87389; 96127; 99202

== ENCOUNTER 2025-03-30 13:03 | Outpatient (RCR) | payer MEDICARE, MEDICAID, SELFPAY ==
--- NOTE | 2025-03-30 15:34 | MHC.OT.EP ---
[facility] Office [address] [facility] [phone] F: [phone] F: [phone] Occupational Therapy Plan of Care Patient Name: Francine Brady Date of Evaluation: 03/30/25 Diagnosis: Bilateral elbow and hand pain Pain Location: Left elbow 8/10 Right elbow 6/10 Bilateral hands 5/10 Pain Score: 8 Pain Scale Used: Numeric (0 - 10) Aggravating Factors: Full extension of elbows, lifting, carrying Alleviating Factors: Ice, heat, Volterin cream Assessment: Francine is a 64 y/o female presenting with bilateral elbow and hand pain limiting functional mobility and independence. Extension deficits at bilateral elbows secondary to bony calcifications and pain likely impacting ability to perform reaching activities required for ADLs/IADLs. Quick DASH score of 54.5% indicates moderate limitations of UE. Patient would benefit from skilled OT intervention to address pain management, compensatory techniques, and functional mobility. However, due to scheduling conflicts and transportation barriers (patient is reliant on [facility] agency for transportation to appointments), outpatient therapy is not feasible at this time. Pt was issued home program for B UE stretching and ROM, caregivers were present and in agreement with assisting pt. with home program. Frequency and Duration: The patient will be seen OT eval only due to scheduling conflicts Treatment Plan: Therapeutic Exercise Other (see comments) Recommending home-based OT services to allow for skilled intervention in patient's living environment, eliminating transportation barriers and facilitating carryover of therapeutic exercises and strategies with [facility] staff support. Electronically Signed By: Jami Alvares MS OTR/L Please Sign and return to therapist. Thank you once again for your referral.
== END 2025-04-05 09:31 | disposition home or self-care (01) ==
LOC: HO.OTS 13:03
PROVIDERS: Visit Provider Student in an Organized Health Care Education/Training Program
DX: M25.541 Pain in joints of right hand (principal); M25.542 Pain in joints of left hand; M25.521 Pain in right elbow
CPT/HCPCS: 97110; 97165

== ENCOUNTER 2025-04-05 15:02 | Outpatient (AMB) | payer MEDICARE, MEDICAID, SELFPAY ==
--- NOTE | 2025-04-05 15:06 | MHC.PC.OV ---
Vital Signs 04/05/25 15:15 Weight 132 lb 2 oz BP 127/66 Blood Pressure Location Lt brachial Position Sitting Respiration 16 Pulse 76 Pulse Source Pulse Oximeter Temp 98.3 F Temp Source Oral Pulse Oximetry (%) 96 Oxygen Delivery Method Room Air Intake Visit Reasons: 2 wk f/u - lab review Intake Note: Patient present for follow up. 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 Allergies No Known Allergies Allergy (Verified 04/05/25 15:14) Medication List - Last Reconciled 04/06/25 by Marino Reed MD acetaminophen 650 mg PO QID PRN amlodipine 5 mg PO DAILY atorvastatin (Lipitor) 20 mg PO DAILY blood-glucose sensor ([employer] G7 Sensor device) As directed bupropion HCl 100 mg PO BID calcium carbonate-simethicone 500-20 mg tabs PO cetirizine (All Day Allergy (cetirizine)) 10 mg PO DAILY PRN diclofenac sodium 1% (Voltaren Arthritis Pain) 4 grams topical QID docusate sodium (Colace) 100 mg PO BID fluticasone furoate 100 mcg/actuation 1 inh inhalation DAILY glipizide 10 mg PO BID glucose 2 grams PO .as needed ibuprofen mg PO insulin glargine (Lantus Solostar U-100 Insulin) 12 units (0.12 mL) subcut QPM insulin lispro (Humalog KwikPen (U-100) Insulin) 1 sliding scale dose subcut USEASDIRECTD loperamide 2 mg PO Q6H PRN metformin 1,000 mg PO BID ondansetron HCl 4 mg PO Q6H polyethylene glycol 3350 (ClearLax) 17 grams PO DAILY sennosides (senna) 5 mL PO BID sertraline 200 mg PO DAILY trazodone mg PO trazodone 150 mg PO BEDTIME Tobacco use date assessed: 03/22/25 Fall risk assessment: 2 + Falls in past year Last assessed Fall Risk: 04/05/25 Dental Screening Dental Screen Date: 03/22/25 HPI HPI Comments History of Present Illness Details History of Present Illness The patient is a 64 year old female presenting for chronic condition management, review of lab results, and to address new complaints of ear and knee pain. Type 2 Diabetes Mellitus: The patient has a history of poorly controlled type 2 diabetes mellitus, with a past hemoglobin A1c of 9.1, which has recently improved to 7.8. Her recent random glucose level was 171 mg/dL. Her regimen includes glipizide 10 mg twice daily. She was previously on metformin but expressed fear of the medication and is not currently taking it. She was on insulin while previously at a intermediate, at which time metformin was likely discontinued. Known complications include diabetic neuropathy and an ataxic gait with a history of falls. Decreased renal function: Recent lab work showed a slight decrease in renal function, which is being monitored as a potential complication of her diabetes. Otalgia and Arthralgia: The patient reports new onset of painful ears and left knee pain which began approximately two weeks ago. She denies any fevers or chills associated with the ear pain but reports ringing. She has no prior history of problems with the affected ear. Other Comorbidities: The patient's past medical history is significant for generalized anxiety disorder, fibromyalgia, hepatic steatosis, hypertension, dyslipidemia, recurrent major depressive disorder, peptic ulcer disease secondary to daily ibuprofen use, scoliosis, persistent iron deficiency anemia, osteoarthritis, cervical and lumbar degenerative disc disease, and a history of a CVA. Surgical History: - No past surgical history was discussed. Medications: - Glipizide 10 mg twice a day for diabetes. - Trazodone 12.5 mg at 8 am and 2 pm, and 150 mg at night for depression. - Sertraline (Zoloft) 200 mg for depression. - Bupropion (Wellbutrin) 100 mg twice a day for depression. - Lantus (insulin glargine) 12 units at night for diabetes. - Humalog (insulin lispro) via sliding scale for diabetes. - Amlodipine 10 mg for hypertension. - Atorvastatin for dyslipidemia. - Meloxicam as needed for pain. Social History: - Housing: The patient has a history of residing in a intermediate facility, [facility]. - Nutrition: She has a history of frequent fast food consumption and currently enjoys Coca-Cola, for which moderation was advised. - Functional Status: The patient has a history of an ataxic gait and falls, including a recent fall where she broke her glasses. - Sensory: The patient is hard of hearing but does not use hearing aids because they are too expensive. Family History: - No family history was discussed. Diagnostic Results: - Complete Blood Count: White blood cells, red blood cells, hemoglobin, and hematocrit were normal. - Basic Metabolic Panel: Sodium and potassium were normal. - Renal Function: Noted to be slightly decreased. - Glucose: Random glucose was 171 mg/dL. - Hemoglobin A1c: 7.8%, which is decreased from a prior value of 9.1%. - Prior Imaging: Past imaging has shown hepatic steatosis. Past Medical History - Type 2 diabetes mellitus with neuropathy - Recurrent major depressive disorder - Generalized anxiety disorder - Hypertension - Dyslipidemia - Fibromyalgia - Osteoarthritis - Cervical and lumbar degenerative disc disease - Ataxic gait with a history of falls - History of cerebrovascular accident (CVA) - Persistent iron deficiency anemia - History of peptic ulcer disease related to ibuprofen use - Hepatic steatosis (fatty liver) - Scoliosis - Hearing impairment - History of residence in a intermediate Health Maintenance - Diabetes Management: The patient's glycemic control was reviewed, with her A1c showing improvement from 9.1% to 7.8%. - Medication Adherence: Addressed the patient's prior non-adherence to metformin due to safety concerns and discussed restarting it under close supervision. - Dietary Counseling: Discussed the importance of diet, advising moderation with sugary beverages like Coca-Cola to aid in blood sugar control. - Monitoring: Planned for follow-up in three months to monitor kidney function and B12 levels. - A continuous glucose monitor (CGM) will be ordered to improve diabetes monitoring and reduce the need for fingersticks. [facility] Medical History (Updated 04/06/25 @ 06:47 by Marino Reed MD) Chronic kidney disease Iron deficiency anemia Scoliosis SELENA (generalized anxiety disorder) Cervical radiculopathy Chronic constipation Chronic pain MDD (major depressive disorder) Wheelchair dependence Gait instability Right elbow pain Bilateral finger arthralgia History of CVA (cerebrovascular accident) Dizziness Osteoarthritis Degenerative disc disease, lumbar Lumbar spondylosis Cervical disc disorder w/radiculopathy mberuzth-agctfwh-xmhma region Anemia Peptic ulcer disease Gastritis Steatosis, liver Dyslipidemia Dysphagia Hypertrophic cardiomyopathy Hypertension Fibromyalgia Type 2 diabetes mellitus TIA (transient ischemic attack) CVA (cerebral vascular accident) Surgical History H/O hand surgery Hx of cholecystectomy H/O section Family History Sister Substance abuse Other FH: mental illness Social History (Updated 04/05/25 @ 15:15 by SANTHOSH Abbott Housing: Assisted Living Facility Alcohol intake: never Patient Tobacco Use Status: Former Tobacco user e-Cigarette/Vaping Use: Never Used Second Hand Smoke Exposure: No service: No Current occupational status: disabled Current occupational exposures/hazards: No Cognitive needs: Yes Hearing needs: Yes Vision needs: Yes Questionnaire PHQ-9 Over the last 2 weeks, how often have you been bothered by any of the following problems? 1. Little interest or pleasure in doing things: not at all 2. Feeling down, depressed, or hopeless: not at all 3. Trouble falling or staying asleep, or sleeping too much: not at all 4. Feeling tired or having little energy: not at all 5. Poor appetite or overeating: not at all 6. Feeling bad about yourself - or that you are a failure or have let yourself or your family down: not at all 7. Trouble concentrating on things, such as reading the newspaper or watching television: not at all 8. Moving or speaking so slowly that other people could have noticed. Or the opposite - being so fidgety or restless that you have been moving around a lot more than usual: not at all 9. Thoughts that you would be better off or of hurting yourself in some way: not at all Total score: 0 Depression Screening Interpretation: Negative Depression Screening Done: Yes 58778 - PHQ-9 Billing: Yes Source: Developed by Drs. Radames Crawley, Sophie Clarke, Jonatan So and colleagues, with an educational aaron from [employer]. Thrive Questionnaire Date Thrive assessed: 03/22/25 I am a: Patient What is your living situation today?: I have a steady place to live Within the past 12 months, did the food you bought not last and you didn't have the money to get more?: Never true Within the past 12 months, did you worry whether your food would run out before you got money to buy more?: Never true Do you have trouble paying for medicines?: No Do you have trouble getting transportation to medical appointments?: No Do you have trouble paying your heating and electricity bill?: No Do you have trouble taking care of your child, family member or friend?: No Are you currently unemployed and looking for a job?: No Are you interested in more education?: No Please select the resources that you would like help with: None Currently or been in a relationship where the following occur: No concerns reported THRIVE Score: 0 AUDIT C Alcohol Use Questionnaire (AUDIT-C) 1. How often do you have a drink containing alcohol?: Never Total Score: 0 SELENA-7 AMB Questionnaire SELENA-7 Date SELENA - 7 assessed: 03/22/25 Feeling nervous, anxious, or on edge: 0 = Not at all Not being able to stop or control worryin = Not at all Worrying too much about different things: 0 = Not at all Trouble relaxin = Not at all Being so restless that it is hard to sit still: 0 = Not at all Becoming easily annoyed or irritable: 0 = Not at all Feeling afraid as if something awful might happen: 0 = Not at all Total SELENA-7 score (0-4 normal; 5-9 mild; 10-14 moderate; 15-21 severe): 0 Source: Developed by Drs. Radames Crawley, Sophie Clarke, Jonatan So and colleagues, with an educational aaron from [employer]. SELENA-7 Assessment Billing SELENA-7 Assessment Tool: SELENA-7 Assessment 60725 Review of Systems Narrative Review of Systems - Constitutional: Denies fevers or chills. - HEENT: Reports ear pain and ringing in the ear (tinnitus). - Musculoskeletal: Reports left knee pain for approximately two weeks and also reports toe pain. 10-point ROS reviewed and negative except as noted in HPI Physical exam (Primary Care) Vital Signs: Last Vital Signs Temp 98.3 F 04/05/25 15:15 Pulse 76 04/05/25 15:15 Resp 16 04/05/25 15:15 BP 127/66 04/05/25 15:15 Pulse Ox 96 04/05/25 15:15 Oxygen Delivery Method Room Air 04/05/25 15:15 Tobacco/Smoking Status: Tobacco use Status Tobacco use date assessed 03/22/25 04/05/25 15:07 Patient Tobacco Use Status Former Tobacco user 04/05/25 15:15 e-Cigarette/Vaping Use Never Used 04/05/25 15:15 PHQ-9: PHQ-9 Score PHQ-9: Total score 0 04/05/25 20:01 Depression Screening Interpretation: Negative Thrive Assessment: Date of Thrive Assessment Date Thrive assessed 03/22/25 04/05/25 15:07 Currently or been in a relationship where the following occur: No concerns reported Narrative Physical Exam General: Well-appearing, in no acute distress. Vital signs: Within normal limits. HEENT: Normocephalic, atraumatic. PERRLA, EOMI. Conjunctiva clear, sclera anicteric. Oropharynx clear, mucous membranes moist. TMs intact bilaterally, but patient reports episodes of ear blackout and pain, with ringing in the ears. Neck: Supple, no lymphadenopathy, no thyromegaly, no JVD or carotid bruits. Cardiovascular: RRR, normal S1/S2, no murmurs, rubs, or gallops. Peripheral pulses 2+ and symmetric. No edema. Respiratory: Lungs clear to auscultation bilaterally, no wheezes, rales, or rhonchi. Normal effort. Abdomen: Soft, non-tender, non-distended. Normoactive bowel sounds. No hepatosplenomegaly, no masses. MSK: Full range of motion, no joint swelling or deformity. wheelchairbound. Patient reports left knee pain starting approximately two weeks ago. Skin: Warm, dry, intact. No rashes, lesions, or pallor. Neuro: Alert and oriented x3. Cranial nerves II-XII intact. Strength 5/5 throughout. Sensation intact. Reflexes 2+ symmetric. Psych: Appropriate mood and affect. Normal judgment and insight. Coding Level of Care Code Est Pt Level 3 (48177) Add On Problem Visit Only Diagnoses MDD (major depressive disorder) F32.9 SELENA (generalized anxiety disorder) F41.1 Type 2 diabetes mellitus E11.9 Chronic constipation K59.09 Osteoarthritis M19.90 Bilateral finger arthralgia M25.541; M25.542 Fibromyalgia M79.7 History of CVA (cerebrovascular accident) Z86.73 Degenerative disc disease, lumbar M51.369 Cervical radiculopathy M54.12 Chronic pain G89.29 Gait instability R26.81 Wheelchair dependence Z99.3 Scoliosis M41.9 Iron deficiency anemia D50.9 Chronic kidney disease N18.9 Additional Codes SELENA-7 Assessment Billing - SELENA-7 Assessment Tool: SELENA-7 Assessment 63583 ([id number]) PHQ-9 - 78222 - PHQ-9 Billing: Yes ([id number]) Assessment & Plan Assessment & Plan (1) MDD (major depressive disorder): Code(s): F32.9 - Major depressive disorder, single episode, unspecified Category: Medical (2) SELENA (generalized anxiety disorder): Code(s): F41.1 - Generalized anxiety disorder Category: Medical (3) Type 2 diabetes mellitus: Code(s): E11.9 - Type 2 diabetes mellitus without complications Category: Medical (4) Chronic constipation: Code(s): K59.09 - Other constipation Category: Medical (5) Osteoarthritis: Code(s): M19.90 - Unspecified osteoarthritis, unspecified site Category: Medical (6) Bilateral finger arthralgia: Code(s): M25.541 - Pain in joints of right hand; M25.542 - Pain in joints of left hand Category: Medical (7) Fibromyalgia: Code(s): M79.7 - Fibromyalgia Category: Medical (8) History of CVA (cerebrovascular accident): Code(s): Z86.73 - Personal history of transient ischemic attack (TIA), and cerebral infarction without residual deficits Category: Medical (9) Degenerative disc disease, lumbar: Code(s): M51.369 - Other intervertebral disc degeneration, lumbar region without mention of lumbar back pain or lower extremity pain Category: Medical (10) Cervical radiculopathy: Code(s): M54.12 - Radiculopathy, cervical region Category: Medical (11) Chronic pain: Code(s): G89.29 - Other chronic pain Category: Medical (12) Gait instability: Code(s): R26.81 - Unsteadiness on feet Category: Medical (13) Wheelchair dependence: Code(s): Z99.3 - Dependence on wheelchair Category: Medical (14) Scoliosis: Code(s): M41.9 - Scoliosis, unspecified Category: Medical (15) Iron deficiency anemia: Code(s): D50.9 - Iron deficiency anemia, unspecified Category: Medical (16) Chronic kidney disease: Code(s): N18.9 - Chronic kidney disease, unspecified Category: Medical Plan Consent The risks, benefits, and alternatives of adding metformin to the patient's diabetes regimen were discussed. It was explained that while any medication has risks, the dangers of unmonitored use would be mitigated by regular follow-up visits every 3 months to monitor kidney function. The potential benefits of improved glycemic control to prevent complications such as foot ulcers and amputation were also reviewed. The option of using a continuous glucose monitor (CGM) like Dexcom or Freestyle Ofelia was also presented as a means to reduce frequent fingersticks, and the patient was agreeable. After discussion, the patient provided verbal consent to proceed with the addition of metformin and the use of a CGM. Patient was informed and verbally consented to the use of an ambient scribe for clinic note documentation during this visit. Plan 1. Type 2 Diabetes Mellitus - Although the hemoglobin A1c has improved to 7.8%, the patient's diabetes remains uncontrolled. - Add metformin 1000 mg twice daily. - Continue glipizide 10 mg twice a day. - Continue insulin glargine (Lantus) 12 units at night. - Continue insulin lispro (Humalog) with a sliding scale. - Prescribe a continuous glucose monitor (Freestyle Ofelia or Dexcom, depending on insurance coverage) to replace fingerstick testing. - Prescribe glucose tablets for management of potential hypoglycemia. - Provided counseling on dietary moderation, specifically regarding sugary drinks. - Follow up in three months for lab monitoring, including kidney function. 2. Chronic Medication Management - Refill all current medications, including bupropion, trazodone, and sertraline. - The patient is awaiting a rescheduled appointment with a therapist. 3. Otalgia (Ear Pain) - The patient's complaint was noted no s/s of infection take Tylenol for pain. Discussion Notes I reviewed the patient's recent lab results, noting the improvement in her hemoglobin A1c to 7.8%, down from 9.1%, but emphasized that her diabetes remains uncontrolled. I also informed her that her renal function is slightly decreased, which we will need to monitor. I strongly recommended re-initiating metformin, explaining that it is a foundational treatment for diabetes management. I addressed her safety concerns by assuring her that we would monitor her kidney function and B12 levels every three months to mitigate any risks. I explained the severe potential complications of poorly controlled diabetes, such as neuropathy, diabetic foot ulcers, and amputations, to highlight the importance of improving her glycemic control. The patient verbally agreed to this plan. We discussed switching her from manual fingersticks to a continuous glucose monitor (CGM), such as a Freestyle Ofelia or Dexcom, to make monitoring easier and more consistent, and she was agreeable to this change. I counseled her on her diet, advising moderation with sugary drinks like Coca-Cola by choosing smaller portions. I will provide refills for all of her current medications and have arranged for a follow-up visit in three months. Patient Instructions - Please start taking metformin 1000 mg twice per day, once in the morning and once at night. - Continue taking all of your other medications as prescribed, including glipizide, insulin, and your medications for blood pressure and mood. - We will send a prescription for a continuous glucose monitor (such as a Dexcom or Freestyle Ofelia) so you can check your blood sugar without frequent finger pokes. - A prescription for glucose tablets will be sent to help you manage any episodes of low blood sugar. - It is important to control your diet. You can have a small Coke in moderation, but try to avoid large amounts of sugary foods and drinks. - All of your current medications will be refilled. - Please schedule a follow-up appointment in three months to check your progress and lab work. Medical Decision Making The patient is a 64-year-old female with a complex medical history, most notably poorly controlled type 2 diabetes with an HbA1c of 7.8% and slightly decreased renal function. The primary goal of this visit was to intensify her glycemic control to prevent further progression of diabetic complications, including neuropathy and nephropathy. My decision to re-initiate metformin is based on its established efficacy as a first-line agent for type 2 diabetes. Although the patient expressed concerns about its safety, I have determined that the benefits of improved glycemic control significantly outweigh the risks, which will be mitigated by close monitoring of her renal function and B12 levels every three months. The addition of metformin to her current regimen of glipizide, basal insulin (Lantus), and prandial insulin (Humalog) is expected to bring her A1c closer to the target range. To improve adherence and obtain better glycemic data, a continuous glucose monitor (CGM) was ordered. This will allow for more effective adjustments to her medication regimen in the future. All other chronic medications were refilled to ensure continuity of care. The plan is to reassess in three months. Total Time Statement 20 min Total time spent caring for the patient today includes pre-visit chart review, documentation, review of laboratory and diagnostic imaging results, medication reconciliation, medically necessary evaluation, counseling on diagnoses, care coordination, ordering appropriate tests and medications, review of tests performed by other providers, reporting test results to the patient, and communication with other healthcare providers. Medications: New insulin lispro (Humalog KwikPen (U-100) Insulin) max 6U 1 sliding scale dose subcut USEASDIRECTD 15 mL 0RF metformin 1,000 mg PO BID 180 tabs 0RF blood-glucose sensor ([employer] G7 Sensor device) As directed 2 ea 11RF insulin glargine (Lantus Solostar U-100 Insulin) 12 units (0.12 mL) subcut QPM 15 mL 0RF glucose 2 grams PO .as needed 20 tabs 0RF
[2025-04-05 15:15] VITALS: BP 127/66; PULSE 76; RESP 16; TEMP 36.8; O2SAT 96
--- OUTSIDE RECORDS SUMMARY | 2025-04-05 20:00 | XMS_ITS | Encounter Summary ---
Author Organization [facility] Address [address] [place] [address] Care Team Providers Care Behavior Clinician Name Role Phone Cinthia Frias MD Primary Care Provider + Encounter Details Date Type Department Care Team (Late st Contact Info) Description 08/01/[address] [facility] - Main Lab [address] [facility] [place] [address] Cinthia Frias MD [address] [address] Type 2 diabetes mellitus without complications (CMS/HCC [...] mmol/L LAB CHEMISTRY METHOD 08/01/2024 2:11 PM [facility] Potassium 4.2 3.5 - 5.5 mmol/L LAB CHEMISTRY METHOD 08/01/2024 2:11 PM [facility] Chloride 102 96 - 110 mmol/L LAB CHEMISTRY METHOD 08/01/2024 2:11 PM [facility] CO2 29 21 - 32 mmol/L LAB CHEMISTRY METHOD 08/01/2024 2:11 PM [facility] Anion Gap 6 3 - 11 LAB CHEMISTRY METHOD 08/01/2024 2:11 PM [facility] Glucose 274(H) 70 - 100 mg/dL LAB CHEMISTRY METHOD 08/01/2024 2:11 PM [facility] BUN 17 5 - 25 mg/dL LAB CHEMISTRY METHOD 08/01/2024 2:11 PM [facility] Creatinine 0.99 0.50 - 1.10 mg/dL LAB CHEMISTRY METHOD 08/01/2024 2:11 PM [facility] eGFR 63 >=60 mL/min/1. 73m2 LAB CHEMISTRY METHOD 08/01/2024 2:11 PM [facility] Comment:Calculation based on the Chronic Kidney Disease Epidemiology Collaboration (CKD-EPI) equation refit without adjustment for race. BUN/Creatinine Ratio 17.2 LAB CHEMISTRY METHOD 08/01/2024 2:11 PM [facility] Calcium 9.8 8.5 - 10.5 mg/dL LAB CHEMISTRY METHOD 08/01/2024 2:11 PM [facility] Blood Venous blood specimen / Unknown Venipuncture / Unknown 08/01/2024 9:41 AM EDT 08/01/2024 10:54 AM EDT Cinthia Frias MD LAB BLOOD ORDERABLES Fin al Result [facility] [address] [place] [address], * (ABNORMAL) Complete blood count (08/01/2024 9:41 AM EDT) [facility] Signature WBC 6.5 4.8 - 10.8 K/mcL LAB HEMETOLOGY METHOD 08/01/2024 12:39 PM EDT [facility] RBC 4.60 3.80 - 4.80 M/mcL LAB HEMETOLOGY METHOD 08/01/2024 12:39 PM EDT [facility] Hemoglobin 13.3 11.5 - 16.0 g/dL LAB [facility]EMETOLOGY [facility] Hematocrit 41.7 35.0 - 47.0 % LAB HEMETOLOGY METHOD 08/01/2024 12:39 PM EDT [facility] MCV 90.3 79.0 - 98.0 FL LAB HEMETOLOGY METHOD 08/01/2024 12:39 PM EDT [facility] MCH 28.8 27.0 - 32.0 pcg LAB HEMETOLOGY METHOD 08/01/2024 12:39 PM [facility] MCHC 31.9(L) 32.0 - 37.0 g/dL LAB HEMETOLOGY METHOD 08/01/2024 12:39 PM EDT [facility] RDW 13.6 11.0 - 15.0 % LAB HEMETOLOGY METHOD 08/01/2024 12:39 PM EDT [facility] Platelets 286 130 - 400 K/mcL LAB HEMETOLOGY METHOD 08/01/2024 12:39 PM EDT [facility] MPV 10.1 7.0 - 11.0 FL LAB HEMETOLOGY METHOD 08/01/2024 12:39 PM EDT [facility] NRBC 0.0 <1.0 % LAB HEMETOLOGY METHOD 08/01/2024 12:39 PM EDT [facility] NRBC Absolute 0.00 <0.10 K/mcL LAB HEMETOLOGY METHOD 08/01/2024 12:39 PM EDT [facility] Blood Venous blood specimen / Unknown Venipuncture / Unknown 08/01/2024 9:41 AM EDT 08/01/2024 10:54 AM EDT us Cinthia Frias MD LAB BLOOD ORDERABLES Fin al Result [facility] [address] [place] [address], documented in this encounter Visit Diagnoses Diagnosis Type 2 diabetes mellitus without complications (CMS/HCC V24, CMS/HCC V28) documented in this encounter Care Teams Behavior Clinician Relationship Specialty Start Date End Date Cinthia Frias MD PCP - General Family Medicine 08/01/24 documented as of this encounter
--- OUTSIDE RECORDS SUMMARY | 2025-04-05 20:00 | XMS_ITS | Encounter Summary ---
Author Organization [facility] Address [address] [place] [address] Care Team Providers Care Schedule Announcer Name Role Phone Cinthia Frias MD Primary Care Provider + Encounter Details Date Type Department Care Team (Late st Contact Info) Description 03/08/2024 Lab Requisition [facility] - Main Lab [address] [place] [address] Cinthia Frias MD [address] [address] Essential (primary) hypertension Social History Tobacco Use [...] mmol/L LAB CHEMISTRY METHOD 03/08/2024 9:39 AM [facility] Potassium 4.3 3.5 - 5.5 mmol/L LAB CHEMISTRY METHOD 03/08/2024 9:39 AM [facility] Chloride 100 96 - 110 mmol/L LAB CHEMISTRY METHOD 03/08/2024 9:39 AM [facility] CO2 28 21 - 32 mmol/L LAB CHEMISTRY METHOD 03/08/2024 9:39 AM [facility] Anion Gap 8 3 - 11 LAB CHEMISTRY METHOD 03/08/2024 9:39 AM [facility] Glucose 299(H) 70 - 100 mg/dL LAB CHEMISTRY METHOD 03/08/2024 9:39 AM [facility] BUN 13 5 - 25 mg/dL LAB CHEMISTRY METHOD 03/08/2024 9:39 AM [facility] Creatinine 1.08 0.50 - 1.10 mg/dL LAB CHEMISTRY METHOD 03/08/2024 9:39 AM [facility] eGFR 57(L) >=60 mL/min/1. 73m2 LAB CHEMISTRY METHOD 03/08/2024 9:39 AM [facility] Comment:Calculation based on the Chronic Kidney Disease Epidemiology Collaboration (CKD-EPI) equation refit without adjustment for race. BUN/Creatinine Ratio 12.0 LAB CHEMISTRY METHOD 03/08/2024 9:39 AM [facility] Calcium 9.6 8.5 - 10.5 mg/dL LAB CHEMISTRY METHOD 03/08/2024 9:39 AM [facility] Blood Venous blood specimen / Unknown Venipuncture / Unknown 03/08/2024 7:00 AM EST 03/08/2024 8:33 AM EST us Cinthia Frias MD LAB BLOOD ORDERABLES Fin al Result [facility] [address] [place] [address], * (ABNORMAL) Complete blood count (03/08/2024 7:00 AM EST) [facility] WBC 6.7 4.8 - 10.8 K/mcL LAB HEMETOLOGY METHOD 03/08/2024 9:18 AM [facility] RBC 4.40 3.80 - 4.80 M/mcL LAB HEMETOLOGY METHOD 03/08/2024 9:18 AM [facility] Hemoglobin 11.7 11.5 - 16.0 g/dL LAB HEMETOLOGY METHOD 03/08/2024 9:18 AM [facility] Hematocrit 37.8 35.0 - 47.0 % LAB HEMETOLOGY METHOD 03/08/2024 9:18 AM [facility] MCV 86.9 79.0 - 98.0 FL LAB HEMETOLOGY METHOD 03/08/2024 9:18 AM [facility] MCH 26.9(L) 27.0 - 32.0 pcg LAB HEMETOLOGY METHOD 03/08/2024 9:18 AM [facility] MCHC 31.0(L) 32.0 - 37.0 g/dL LAB HEMETOLOGY METHOD 03/08/2024 9:18 AM [facility] RDW 14.6 11.0 - 15.0 % LAB HEMETOLOGY METHOD 03/08/2024 9:18 AM [facility] Platelets 258 130 - 400 K/mcL LAB HEMETOLOGY METHOD 03/08/2024 9:18 AM [facility] MPV 10.3 7.0 - 11.0 FL LAB HEMETOLOGY METHOD 03/08/2024 9:18 AM [facility] NRBC 0.0 <1.0 % LAB HEMETOLOGY METHOD 03/08/2024 9:18 AM [facility] NRBC Absolute 0.00 <0.10 K/mcL LAB HEMETOLOGY METHOD 03/08/2024 9:18 AM EST [facility] Blood Venous blood specimen / Unknown Venipuncture / Unknown 03/08/2024 7:00 AM EST 03/08/2024 8:33 AM EST us Cinthia Frias MD LAB BLOOD ORDERABLES Fin al Result [facility] [address] [place] [address], documented in this encounter Visit Diagnoses Diagnosis Essential (primary) hypertension Unspecified essential hypertension documented in this encounter Care Teams Schedule Announcer Relationship Specialty Start Date End Date Cinthia Frias MD PCP - General Family Medicine 08/01/24 documented as of this encounter
--- OUTSIDE RECORDS SUMMARY | 2025-04-05 20:00 | XMS_ITS | Encounter Summary ---
Author Organization [facility] Address [address] [place] [address] Care Team Providers Care Grinding Operator Name Role Phone Cinthia Frias MD Primary Care Provider + Encounter Details Date Type Department Care Team (Late st Contact Info) Description 03/10/2024 Lab Requisition [facility] - Main Lab [address] [place] [address] Cinthia Frias MD [address] [id number] Type 2 diabetes mellitus without complications (CMS/HCC [...] LAB CHEMISTRY METHOD 03/10/2024 12:40 PM EST [facility] Mean Bld Glu Estim. 269 mg/dL LAB CHEMISTRY METHOD 03/10/2024 12:40 PM EST [facility] Blood Venous blood specimen / Unknown Venipuncture / Unknown 03/10/2024 7:27 AM EST 03/10/2024 8:24 AM EST us Cinthia Frias MD LAB BLOOD ORDERABLES Fin al Result [facility] [address] [place] [address], documented in this encounter Visit Diagnoses Diagnosis Type 2 diabetes mellitus without complications (CMS/HCC V24, CMS/HCC V28) documented in this encounter Care Teams Grinding Operator Relationship Specialty Start Date End Date Cinthia Frias MD PCP - General Family Medicine 08/01/24 documented as of this encounter
--- OUTSIDE RECORDS SUMMARY | 2025-04-05 20:00 | XMS_ITS | Clinical Summary ---
Author Organization [employer] [address] [place] [address] Address [address] [place] [address] Phone Care Team Providers Care Internal Communications Intern Name Role Phone Elder, Cinthia Patel MD [...] as directed 0 Active pseudoephed/acet aminoph/diphen (BENADRYL [id number] ADACH ORAL) prn Active LANCETS MISC test [...] 2008 Controlled diabetes mellitus type II without com plication 07/13/2008 Carpal tunnel syndrome 02/03/2007 Overview (05/04/2024): s/p bilateral surgery Idiopathic scoliosis and kyphoscoliosis 01/27/20 06 Primary localized osteoarthrosis, hand 6 Overview (05/04/2024): 6 surgeries, fused 1st MP jt. Dr. Barragan Allergic rhinitis 01/26/2006 Pure hypercholesterolemia 10/14/2005 Tobacco use disorder 10/14/2005 Encounters Date Type Department Care Team Description 02/09/2025 Telephone [facility] [address] [place] [address] Nagi Almeida MD from Last [...] on file Sexual Orientation Not on file Last Filed Vital Signs Vital Sign Reading [...] Colonoscopy 07/12/2024 07/12/2014, 01/30/2009 COVID-19 Vaccine ( season) 2024 09/19/2020, 08/21/2020 Influenza Vaccine (#1) [...] EDT Type 2 diabetes mellitus without complications ([facility] V24, [facility] V28) HEMOGLOBIN A1C Routine 11/21/2024 5:44 AM EDT Type 2 diabetes mellitus without complications ([facility] V24, [facility] V28) LIPID PANEL WITH REFLEX TO DIRECT LDL Routine 11/21/2024 5:44 AM EDT Type 2 diabetes mellitus without complications ([facility] V24, [facility] V28) COLONOSCOPY Routine 01/30/2009 URINE ALBUMIN CREATININE RATIO Routine 09/13/2008 from Last 3 Months or Most Recently Relevant to Health Maintenance Results * (ABNORMAL) Lipid panel with reflex to direct LDL (11/21/2024 5:44 AM EDT) Cholesterol 243(H) 0 - 200 mg/dL LAB CHEMISTRY METHOD 11/21/2024 1:34 PM EDT [facility] Triglycerides 209(H) 0 - 150 mg/dL LAB CHEMISTRY METHOD 11/21/2024 1:34 PM EDT [facility] HDL 64 >=40 mg/dL LAB CHEMISTRY METHOD 11/21/2024 1:34 PM EDT [facility] LDL Calculated 137(H) 0 - 100 mg/dL LAB CHEMISTRY METHOD 11/21/2024 1:34 PM EDT [facility] VLDL Cholesterol Moncho 41.8 mg/dL LAB CHEMISTRY METHOD 11/21/2024 1:34 PM EDT [facility] Non HDL Chol. (LDL+VLDL) 179(H) <145 mg/dL LAB CHEMISTRY METHOD 11/21/2024 1:34 PM EDT [facility] Chol/HDL Ratio 3.8 0.0 - 4.4 LAB CHEMISTRY METHOD 11/21/2024 1:34 PM EDT [facility] Blood Venous blood specimen / Unknown Venipuncture / Unknown 11/21/2024 5:44 AM EDT 11/21/2024 11:09 AM EDT Cinthia Frias MD LAB BLOOD ORDERABLES Fin al Result Performing Organization Address [facility]/ZIP Co de Phone Number [facility] [address] [place] [address], [place] [phone] * (ABNORMAL) Hemoglobin A1c (11/21/2024 5:44 AM EDT) Hemoglobin A1C 8.7(H) <6.5 % LAB CHEMISTRY METHOD 11/21/2024 2:00 PM EDT [facility] Mean Bld Glu Estim. 203 mg/dL LAB CHEMISTRY METHOD 11/21/2024 2:00 PM EDT [facility] Blood Venous blood specimen / Unknown Venipuncture / Unknown 11/21/2024 5:44 AM EDT 11/21/2024 11:09 AM EDT Cinthia Frias MD LAB BLOOD ORDERABLES Fin al Result Performing Organization Address City/[facility]/ZIP Co de Phone Number [facility] [address] [place] [address], [place] [phone] * (ABNORMAL) Basic metabolic panel (11/21/2024 5:44 AM EDT) Sodium 140 133 - 145 mmol/L LAB CHEMISTRY METHOD 11/21/2024 1:37 PM [facility] Potassium 4.1 3.5 - 5.5 mmol/L LAB CHEMISTRY METHOD 11/21/2024 1:37 PM [facility] Chloride 104 96 - 110 mmol/L LAB CHEMISTRY METHOD 11/21/2024 1:37 PM [facility] CO2 28 21 - 32 mmol/L LAB CHEMISTRY METHOD 11/21/2024 1:37 PM [facility] Anion Gap 8 3 - 11 LAB CHEMISTRY METHOD 11/21/2024 1:37 PM [facility] Glucose 100 70 - 100 mg/dL LAB CHEMISTRY METHOD 11/21/2024 1:37 PM [facility] BUN 20 5 - 25 mg/dL LAB CHEMISTRY METHOD 11/21/2024 1:37 PM [facility] Creatinine 1.04 0.50 - 1.10 mg/dL LAB CHEMISTRY METHOD 11/21/2024 1:37 PM [facility] eGFR 59(L) >=60 mL/min/1. 73m2 LAB CHEMISTRY METHOD 11/21/2024 1:37 PM [facility] Comment:Calculation based on the Chronic Kidney Disease Epidemiology Collaboration (CKD-EPI) equation refit without adjustment for race. BUN/Creatinine Ratio 19.2 LAB CHEMISTRY METHOD 11/21/2024 1:37 PM [facility] Calcium 9.4 8.5 - 10.5 mg/dL LAB CHEMISTRY METHOD 11/21/2024 1:37 PM [facility] Blood Venous blood specimen / Unknown Venipuncture / Unknown 11/21/2024 5:44 AM EDT 11/21/2024 11:09 AM EDT us Cinthia Frias MD LAB BLOOD ORDERABLES Fin al Result [facility] [address] [place] [address], * Colonoscopy (01/30/2009) Colonoscopy No interpretation , abstracted Anatomical Region Laterality Modality Other us Historical Provider HEALTH MAINTENANCE Final Result * Urine Albumin Creatinine Ratio (09/13/2008) Urine Albumin Creatinine Ratio abstracted Historical Provider HEALTH MAINTENANCE Final Result from Last 3 Months or Most Recently Relevant to Health Maintenance Insurance [place]ICA[place] MEDICARE Advance Directives Documents on File Type Date Recorded Patient Oracle Forms Developer Expl anation Advance Directives and Living Will 06/13/2024 3:12 PM MOLST Health Care Decision (hx) 05/03/2018 AD MEEKS DIRECTIVE Health Care Decision (hx) 05/03/2018 AD MEEKS DIRECTIVE Health Care Decision (hx) 05/03/2018 AD MEEKS DIRECTIVE Care Teams Internal Communications Intern Relationship Specialty Start Date End Date Cinthia Frias MD PCP - General Family Medicine 08/01/24
--- OUTSIDE RECORDS SUMMARY | 2025-04-05 20:01 | XMS_ITS | Encounter Summary ---
Author Organization [facility] Address [address] [place] [address] Care Team Providers Care Animal Hospital Clerk Name Role Phone Cinthia Frias MD Primary Care Provider + Encounter Details Date Type Department Care Team (Late st Contact Info) Description 09/19/2024 Lab Requisition [facility] - Main Lab [address] [facility] [place] [address] Cinthia Frias MD [address] [address] Dizziness and giddiness Social History Tobacco Use [...] K/mcL LAB [facility] RBC 4.30 3.80 - 4.80 M/mcL LAB HEMETOLOGY METHOD 09/20/2024 8:58 AM EDT [facility] Hemoglobin 12.3 11.5 - 16.0 g/dL LAB HEMETOLOGY METHOD 09/20/2024 8:58 AM [facility] Hematocrit 38.4 35.0 - 47.0 % LAB HEMETOLOGY METHOD 09/20/2024 8:58 AM [facility] MCV 89.7 79.0 - 98.0 FL LAB HEMETOLOGY METHOD 09/20[facility]2024 8[facility] MCH 28.7 27.0 - 32.0 pcg LAB HEMETOLOGY METHOD 09/20/2024 8:58 AM [facility] MCHC 32.0 32.0 - 37.0 g/dL LAB HEMETOLOGY METHOD 09/20/2024 8:58 AM [facility] RDW 13.2 11.0 - 15.0 % LAB HEMETOLOGY METHOD 09/20/2024 8:58 AM [facility] Platelets 257 130 - 400 K/mcL LAB HEMETOLOGY METHOD 09/20/2024 8:58 AM [facility] MPV 10.0 7.0 - 11.0 FL LAB HEMETOLOGY METHOD 09/20[facility]2024 8[facility] NRBC 0.0 <1.0 % LAB HEMETOLOGY METHOD 09/20/2024 8:58 AM [facility] NRBC Absolute 0.00 <0.10 K/mcL LAB HEMETOLOGY METHOD 09/20/2024 8:58 AM T [facility] Neutrophils Relative 58.4 % LAB HEMETOLOGY METHOD 09/20/2024 8:58 AM [facility] Lymphocytes Relative 27.7 % LAB HEMETOLOGY METHOD 09/20/2024 8:58 AM [facility] Monocytes Relative 8.6 % LAB HEMETOLOGY METHOD 09/20/2024 8:58 AM [facility] Eosinophils Relative 3.9 % LAB HEMETOLOGY METHOD 09/20/2024 8:58 AM [facility] Basophils Relative 0.8 % LAB HEMETOLOGY METHOD 09/20/2024 8:58 AM [facility] Immature Granulocytes Relative 0.6 % LAB HEMETOLOGY METHOD 09/20/2024 8:58 AM [facility] Neutrophils Absolute 3.76 1.50 - 7.00 K/mcL LAB HEMETOLOGY METHOD 09/20/2024 8:58 AM [facility] Lymphocytes Absolute 1.78 1.00 - 5.00 K/mcL LAB HEMETOLOGY METHOD 09/20/2024 8:58 AM [facility] Monocytes Absolute 0.55 0.20 - 1.00 K/mcL LAB HEMETOLOGY METHOD 09/20/2024 8:58 AM [facility] Eosinophils Absolute 0.25 0.00 - 0.50 K/mcL LAB HEMETOLOGY METHOD 09/20/2024 8:58 AM [facility] Basophils Absolute 0.05 0.00 - 0.20 K/mcL LAB HEMETOLOGY METHOD 09/20/2024 8:58 AM [facility] Immature Granulocytes Absolute 0.04(H) 0.00 - 0.03 K/mcL LAB HEMETOLOGY METHOD 09/20/2024 8:58 AM EDT [facility] Blood Venous blood specimen / Unknown Venipuncture / Unknown 09/20/2024 6:03 AM EDT 09/20/2024 8:19 AM EDT Cinthia Frias MD LAB BLOOD ORDERABLES Fin al Result Performing Organization Address City/[facility]/ZIP Co de Phone Number [facility] [address] [place] [address], [place] [phone] * Magnesium (09/20/2024 6:03 AM EDT) Pathologist [facility] Magnesium 1.9 1.9 - 2.6 mg/dL LAB CHEMISTRY METHOD 09/20/2024 9:11 AM EDT [facility] Blood Venous blood specimen / Unknown Venipuncture / Unknown 09/20/2024 6:03 AM EDT 09/20/2024 8:19 AM EDT Cinthia Frias MD LAB BLOOD ORDERABLES Fin al Result Performing Organization Address City/[facility]/ZIP Co de Phone Number [facility] [address] [place] [address], [place] [phone] * (ABNORMAL) Basic metabolic panel (09/20/2024 6:03 AM EDT) Pathologist [facility] Sodium 142 133 - 145 mmol/L LAB CHEMISTRY METHOD 09/20/2024 9:11 AM EDT [facility] Potassium 4.0 3.5 - 5.5 mmol/L LAB CHEMISTRY METHOD 09/20/2024 9:11 AM EDT [facility] Chloride 108 96 - 110 mmol/L LAB CHEMISTRY METHOD 09/20/2024 9:11 AM EDT [facility] CO2 27 21 - 32 mmol/L LAB CHEMISTRY METHOD 09/20/2024 9:11 AM EDT [facility] Anion Gap 7 3 - 11 LAB CHEMISTRY METHOD 09/20/2024 9:11 AM [facility] Glucose 148(H) 70 - 100 mg/dL LAB CHEMISTRY METHOD 09/20/2024 9:11 AM [facility] BUN 13 5 - 25 mg/dL LAB CHEMISTRY METHOD 09/20/2024 9:11 AM [facility] Creatinine 0.98 0.50 - 1.10 mg/dL LAB CHEMISTRY METHOD 09/20/2024 9:11 AM [facility] eGFR 64 >=60 mL/min/1. 73m2 LAB CHEMISTRY METHOD 09/20/2024 9:11 AM [facility] Comment:Calculation based on the Chronic Kidney Disease Epidemiology Collaboration (CKD-EPI) equation refit without adjustment for race. BUN/Creatinine Ratio 13.3 LAB CHEMISTRY METHOD 09/20/2024 9:11 AM [facility] Calcium 8.5 8.5 - 10.5 mg/dL LAB CHEMISTRY METHOD 09/20/2024 9:11 AM [facility] Blood Venous blood specimen / Unknown Venipuncture / Unknown 09/20/2024 6:03 AM EDT 09/20/2024 8:19 AM EDT us Cinthia Frias MD LAB BLOOD ORDERABLES Fin al Result [facility] [address] [place] [address], documented in this encounter Visit Diagnoses Diagnosis Dizziness and giddiness documented in this encounter Care Teams Animal Hospital Clerk Relationship Specialty Start Date End Date Cinthia Frias MD PCP - General Family Medicine 08/01/24 documented as of this encounter
--- OUTSIDE RECORDS SUMMARY | 2025-04-05 20:01 | XMS_ITS | Encounter Summary ---
Author Organization [facility] Address [address] [place] [address] Care Team Providers Care Soda Jerker Name Role Phone Cinthia Frias MD Primary Care Provider + Encounter Details Date Type Department Care Team (Late st Contact Info) Description 11/18/2024 Lab Requisition [facility] - Main Lab [address] [facility] [place] [address] Cinthia Frias MD [address] [address] Type 2 diabetes mellitus without complications (CMS/HCC [...] EDT Type 2 diabetes mellitus without complications ([facility] V24, [facility] V28) BASIC METABOLIC PANEL Routine 11/21/2024 5:44 AM EDT Type 2 diabetes mellitus without complications ([facility] V24, [facility] V28) documented in this encounter Results * (ABNORMAL) Complete blood count (11/21/2024 5:44 AM EDT) [facility] WBC 7.4 4.8 - 10.8 K/mcL LAB [facility]OLOG[facility] RBC 4.40 3.80 - 4.80 M/mcL LAB HEMETOLOGY METHOD 11/21/2024 12:34 PM [facility] LAB Hemoglobin 12.5 11.5 - 16.0 g/dL LAB HEMETOLOGY METHOD 11/21[facility]2024 [facility] Hematocrit 40.1 35.0 - 47.0 % LAB HEMETOLOGY METHOD 11/21/2024 12:34 PM [facility] LAB MCV 90.5 79.0 - 98.0 FL LAB HEMETOLOGY METHOD 11/21/2024 12:34 PM [facility] LAB MCH 28.2 27.0 - 32.0 pcg LAB HEMETOLOGY METHOD 11/21/2024 12:34 PM [facility] LAB MCHC 31.2(L) 32.0 - 37.0 g/dL LAB HEMETOLOGY METHOD 11/21/2024 12:34 PM [facility] LAB RDW 13.5 11.0 - 15.0 % LAB HEMETOLOGY METHOD 11/21/2024 12:34 PM [facility] LAB Platelets 261 130 - 400 K/mcL LAB HEMETOLOGY METHOD 11/21/2024 12:34 PM [facility] LAB MPV 9.9 7.0 - 11.0 FL LAB HEMETOLOGY METHOD 11/21/2024 12:34 PM EDT [facility] LAB NRBC 0.0 <1.0 % LAB HEMETOLOGY METHOD 11/21/2024 12:34 PM EDT [facility] LAB NRBC Absolute 0.00 <0.10 K/mcL LAB HEMETOLOGY METHOD 11/21/2024 12:34 PM EDT [facility] LAB Blood Venous blood specimen / Unknown Venipuncture / Unknown 11/21/2024 5:44 AM EDT 11/21/2024 11:09 AM EDT Cinthia Frias MD LAB BLOOD ORDERABLES Fin al Result Performing Organization Address [facility] Co de Phone Number [facility] LAB [address] [place] [address], * (ABNORMAL) Hemoglobin A1c (11/21/2024 5:44 AM EDT) Hemoglobin A1C 8.7(H) <6.5 % LAB CHEMISTRY METHOD 11/21/2024 2:00 PM EDT [facility] Mean Bld Glu Estim. 203 mg/dL LAB CHEMISTRY METHOD 11/21/2024 2:00 PM EDT [facility] Blood Venous blood specimen / Unknown Venipuncture / Unknown 11/21/2024 5:44 AM EDT 11/21/2024 11:09 AM EDT Cinthia Frias MD LAB BLOOD ORDERABLES Fin al Result Performing Organization Address City/[facility]/ZIP Co de Phone Number [facility] [address] [place] [address], [place] [phone] * (ABNORMAL) Lipid panel with reflex to direct LDL (11/21/2024 5:44 AM EDT) Cholesterol 243(H) 0 - 200 mg/dL LAB CHEMISTRY METHOD 11/21/2024 1:34 PM EDT [facility] Triglycerides 209(H) 0 - 150 mg/dL LAB CHEMISTRY METHOD 11/21/2024 1:34 PM EDT [facility] HDL 64 >=40 mg/dL LAB CHEMISTRY METHOD 11/21/2024 1:34 PM EDT [facility] LDL Calculated 137(H) 0 - 100 mg/dL LAB CHEMISTRY METHOD 11/21/2024 1:34 PM EDT [facility] VLDL Cholesterol Moncho 41.8 mg/dL LAB CHEMISTRY METHOD 11/21/2024 1:34 PM EDT [facility] Non HDL Chol. (LDL+VLDL) 179(H) <145 mg/dL LAB CHEMISTRY METHOD 11/21/2024 1:34 PM EDT [facility] Chol/HDL Ratio 3.8 0.0 - 4.4 LAB CHEMISTRY METHOD 11/21/2024 1:34 PM EDT [facility] Blood Venous blood specimen / Unknown Venipuncture / Unknown 11/21/2024 5:44 AM EDT 11/21/2024 11:09 AM EDT us Cinthia Frias MD LAB BLOOD ORDERABLES Fin al Result [facility] [address] [place] [address], * (ABNORMAL) Basic metabolic panel (11/21/2024 5:44 AM EDT) Pathologist [facility] Sodium 140 133 - 145 mmol/L LAB CHEMISTRY METHOD 11/21/2024 1:37 PM EDT [facility] Potassium 4.1 3.5 - 5.5 mmol/L LAB CHEMISTRY METHOD 11/21/2024 1:37 PM EDT [facility] Chloride 104 96 - 110 mmol/L LAB CHEMISTRY METHOD 11/21/2024 1:37 PM T [facility] CO2 28 21 - 32 mmol/L LAB CHEMISTRY METHOD 11/21/2024 1:37 PM [facility] Anion Gap 8 3 - 11 LAB CHEMISTRY METHOD 11/21/2024 1:37 PM [facility] Glucose 100 70 - 100 mg/dL LAB CHEMISTRY METHOD 11/21/2024 1:37 PM [facility] BUN 20 5 - 25 mg/dL LAB CHEMISTRY METHOD 11/21/2024 1:37 PM [facility] Creatinine 1.04 0.50 - 1.10 mg/dL LAB CHEMISTRY METHOD 11/21/2024 1:37 PM [facility] LAB eGFR 59(L) >=60 mL/min/1. 73m2 LAB CHEMISTRY METHOD 11/21/2024 1:37 PM T [facility] Comment:Calculation based on the Chronic Kidney Disease Epidemiology Collaboration (CKD-EPI) equation refit without adjustment for race. BUN/Creatinine Ratio 19.2 LAB CHEMISTRY METHOD 11/21/2024 1:37 PM [facility] Calcium 9.4 8.5 - 10.5 mg/dL LAB CHEMISTRY METHOD 11/21/2024 1:37 PM [facility] Blood Venous blood specimen / Unknown Venipuncture / Unknown 11/21/2024 5:44 AM EDT 11/21/2024 11:09 AM EDT us Cinthia Frias MD LAB BLOOD ORDERABLES Fin al Result [facility] [address] [place] [address], documented in this encounter Visit Diagnoses Diagnosis Type 2 diabetes mellitus without complications (CMS/HCC V24, CMS/HCC V28) documented in this encounter Care Teams Soda Jerker Relationship Specialty Start Date End Date Cinthia Frias MD PCP - General Family Medicine 08/01/24 documented as of this encounter
--- OUTSIDE RECORDS SUMMARY | 2025-04-05 20:01 | XMS_ITS | Encounter Summary ---
Author Organization [facility] Address [address] [place] [address] Care Team Providers Care Button Tufting Machine Operator Name Role Phone Elder, Cinthia Patel MD Primary Care Provider + Encounter Details Date Type Department Care Team (Latest Contact Info) Description 08/03/2024 Lab Requisition [facility] - Main Lab [address] [place] [address] Thomas Lynch MD [address] [place] [id number] Type 2 diabetes mellitus without complications (CMS/HCC V24, [facility] V28) Social History Tobacco Use Types Packs/Day [...] 2 diabetes mellitus without complications (CMS/HCC V24, [facility] V28) documented in this encounter Results * (ABNORMAL) Hemoglobin A1c (08/03/2024 5:50 AM EDT) Hemoglobin A1C 9.4(H) <6.5 % LAB CHEMISTRY METHOD 08/03/2024 12:22 PM EDT [facility] LAB Mean Bld Glu Estim. 223 mg/dL LAB CHEMISTRY METHOD 08/03/2024 12:22 PM EDT [facility] Blood Venous blood specimen / Unknown Venipuncture / Unknown 08/03/2024 5:50 AM EDT 08/03/2024 8:44 AM EDT us Thomas Lynch MD LAB BLOOD ORDERABLES Final Resu lt [facility] [address] [place] [address], documented in this encounter Visit Diagnoses Diagnosis Type 2 diabetes mellitus without complications (CMS/HCC V24, CMS/HCC V28) documented in this encounter Care Teams Button Tufting Machine Operator Relationship Specialty Start Date End Date Cinthia Frias MD PCP - General Family Medicine 08/01/24 documented as of this encounter
--- OUTSIDE RECORDS SUMMARY | 2025-04-05 20:01 | XMS_ITS | Data Portability ---
Author Organization [place] [facility] Address [address] [place] [address] Care Team Providers Care Scada Operator Name Role Phone AMISH HOGAN Primary Care Provider [phone] Assessment Encounter Date Assessment Date Assessment LastModified by Organization Details LastModified Time 05/29/2021 05/29/2021 DDx considered, but not limited to: osteomyelitis, abcess/boil, purulent wound cellultis, onychomycosis, diabetic foot ulcer, gangrene, necrotic foot ulcer, toe/foot fracture Likely localized cellulitis of the right great toe due to irritation surrounding right great toenail that is partially avulsed but intact due to chronic onychomycosis in the prescence of poorly controlled diabetes. No evidence of systemic infection. Afebrile, VSS, nontoxic appearance, Lungs CTA, Heart sounds normal, CMS intact to both feet, No foot or leg edema. No open wounds noted. No history of injury. Work up/Results: Pending xray of right foot attn right great toe to check for any bony fracture or osteomyelitis Plan/Discussion: 1. Wound cellulitis - right great toe nail dresssed with xeroform and nonadherant dressing. - advised to keep foot elevated as possible to promote healing - Will cover empirically with cephalexin 500 mg BID for 7 days. - Advised to monitor for any increase in redness, any swelling or increased pain, fever or chills and to contact DH or PCP for follow up if these develop. - Advised to call her PCP for definite follow up and wound check in 1-2 days. 2. Onychomycosis - Patient advised to contact her foot care provider for further treatment and follow up 3. T2DM- - Encouraged patient to reduce intake of sugary foods - Discussed importance of glycemic control to reduce risk of foot infection as well as worsening neuropathy. - Will follow up with PCP In order to obtain further information and compare any laboratory results/values, I have accessed patient records on the [employer]. This information was pertinent in my medical decision making today. [email or web address] Not available 05/29/2021 14:48:36 10/24/2021 10/24/2021 Overview/History : 51 yo established with DH is new to this provier has a PMH of depression, DM, HLD, HTN, IBS and anxiety is seeking evaluation for intermittent N/V/D intermittent x 4 months or more. She states her symptoms usually last or 1-2 days and she was told she could use Imodium for diarrhea. She is eating and drinking at baseline. She report typically having metallic taste in her mouth prior to vomiting. She report having a couple of episode vomiting and nausea over the last 3 days. There is no abdominal pain. Exam: General Appearance: non-toxic, well appearing, in no acute distress Mental Status: active and alert, follows commands appropriately Head: normocephalic, atraumatic Mouth and Throat: moist mucous membranes, no trismus, no drooling, uvula midline, tonsils not enlarged, no erythema Pulmonary: normal effort, no respiratory distress, no tachypnea, no accessory muscle use, no intercostal retractions, lungs sound clear to auscultation bilaterally Cardiovascular: RRR, normal S1, normal S2, no murmurs, no rubs, no gallops, no peripheral edema Gastrointestinal : no abdominal distention, normal bowels sounds, no tenderness to palpation, no guarding, no rebound tenderness, no rigidity Musculoskeletal Generalized Exam: moves all extremities normally, no deformity, no extremity swelling, AROM WNL Psychologic: normal mood, normal affect, normal insight, normal cognition, normal recent memory, normal remote memory Skin: no rash, no lesions, no swelling, no ecchymosis, no erythema, no warmth Vital Signs: T 98.3 HR 96 BP 130/64 RR 16 SpO2 94% RA DDx considered, but not limited to: IBS, SBO, appendicitis, viral illness, gastric reflux This is 61 yo f who complains of 4 months of intermittent N/V/D. Her provider told her to use Imodium for diarrhea. She does have a history of GERD, DM and IBS as well. She report she has a few episodes of vomiting the last 3 days. She also experiencing a metallic taste that is consistent with gastric reflux prior to vomiting. VS are stable and physical exam does not demonstrate an acute abdomen. She describes poor eating habits of soda and concentrated sweets that are exacerbating her GERD symptoms. She reluctant to change her diet though it was encouraged she do so. Will encourage her to be consistent with omeprazole, avoid foods that exacerbate gastric reflux and prescribe ondansetron to help with nausea. Work up/Results: none Plan/Discussion: New Rx ondansetron 4 mg ODT every 6 hours as needed. First dose given on scene. Advised patient to keep food diary and monitor for changes in her BM or the occurrence of N/V Advised patient to choose sugar free non-carbonated beverages Reviewed common gastric reflux trigger foods and advised to avoid. The patient is advised to make an appt with PCP in 2-3 days to discuss ongoing symptoms/ further management. The patient is also advised to go to the ED immediately for any worsening symptoms. The patient understood and agreed with this plan. The patient was given discharge instructions and all questions were answered prior to team departure. Proper Personal Protective Equipment (PPE), including gloves, eye protection and masks were donned and doffed appropriately and all equipment cleaned using approved technique with germicidal disposable wipes prior to and after care of this patient according to [facility] protocols. [email or web address] Not available 11/01/2021 02:21:47 08/21/2022 08/21/2022 Brief Overview: 62 yo established with is new to this provier has a PMH of depression, DM, HLD, HTN, IBS and anxiety is seeking evaluation for fall 2 nights ago when trying to transfer in the bathroom. Thinks that she hit her L foot on the wall and has had continued to pain to L outside of foot. Denies dizziness when fell, LOC, chest pain. No numbness, tingling, swelling to the foot. New to provider not . Vital Signs: 116/ 58, HR 93, temp 98, RR 18 Exam: Alert, oriented. Cardiac: RRR, no murmurs. MSK: Mild tenderness at proximal base of 5th metatarsal. Full ROM of ankle, flexion and extension. Able to move laterally and medially. pain w/ active ROM. DP and PT pulses 2+. No erythema, edema DDx considered, with rationale: Fracture s/p trauma/ sprain/ bruise- possible with pain at the base of the 5th metatarsal. Plan to order XR to rule out fx, unable to perform mobile due to stairs in apt. Pt is not able to obtain transportation and thus is not able to get XR. Low suspicion for fx due to full mobility, no swelling and ability to bear weight but as discussed w/ pt not able to rule out without XR. Pt to follow up with PCP if needed and pain persists No emergent needs for escalation or higher level of care present on exam or with VS review. Discussed need for follow up should urgent symptoms develop. Proper Personal Protective Equipment (PPE), including gloves, eye protection and masks were donned and doffed appropriately and all equipment cleaned using approved technique with germicidal disposable wipes prior to and after care of this patient according to [facility]'s infection prevention protocols. [email or web address] Not available 08/21/2022 18:49:09 Plan of Treatment Reminders Order Date Submit Date Provider Last Modified By Organization Details Last Modified Time Details Appointments None recorded. Lab None recorded. Referral None recorded. Procedures None recorded. Surgeries None recorded. Imaging XR, foot, 3 or more view - attention right great toe ? osteomyel itis 2021 022 [facility] ([facility], [facility] [address] [place] [address], [address], 10:17:58 Medication Orders ondansetr on 4 mg disintegr ating tablet 2021 022 [facility] #[id number], [address] [place] [address], [id number], 23:01:52 Zofran ODT 4 mg disintegr ating tablet 2021 [id number] [address] [place] [address], [id number], 23:01:42 cephalexi n 500 mg tablet 2021 022 [facility] #[id number], [address] [place], [address], 20:50:04 Patient TargetsNo targets recorded. Patient Instructions Encounter Date Encounter Id Patient Instructions Last Modified By Organization Details Last Modified Time 05/29/2021 [id number] Thank you for yo ur visit with [facility] today. At this time, we do not feel that you have an infection that requires hospitalization. However, infections can get worse, even with antibiotics. If you have worsening redness, pain or fever, go immediately to the Emergency Department. Please follow up with your primary care provider or with the specialist referral you were given, within 12-24 hours to be re-examined. If you develop any new or worsening symptoms and need after hours care, please go to nearest ER and/or call 911. If you have additional concerns or develop a change in your condition between 8am-10pm, please call [facility] at [phone] to help navigate your care. [email or web address] Not available 05/29/2021 14:09:12 10/24/2021 [id number] Acute Nausea and Vomiting/Diarrhea BASIC INFORMATION Acute nausea and vomiting often start suddenly, worsen quickly, and last a few hours to 24 hours. Nausea and vomiting most often occur together, although they can occur alone. Cases of acute nausea and vomiting are often from gastrointestinal viruses such as norovirus, rotavirus and influenza. Less often it can be caused by toxins released from food that g oes bad as well as some types of bacteria and parasites. Diarrhea can also occur. Your nurse practitioner will conduct a careful history to help determine if you have one of the more serious causes. The cause of your nausea and vomiting may be unknown. INSTRUCTIONS Medicines: 1) Anti-nausea: You may have been given a prescription for an anti nausea medicine such as Zofran, Phenergan or Compazine. These can be used every 6-8 hours to help prevent nausea and vomiting. They can make you sleepy, so do not drive after taking them. Be sure to read all of the drug information from the pharmacy. 2) Tylenol: Low grade fever is common with acute nausea and vomiting. You may use Tylenol, per the recommended dosing on the label, to help control fever. If you have liver disease, do not use Tylenol. Ask your CEMENT KILN OPERATOR how to address fever if you are concerned about Tylenol use. 3) Anti-diarrheal medicines: These are available nmmq-kiy-cgunzzn, but in some cases are not recommended and can even worsen some cases of intestinal problems. Ask your CEMENT KILN OPERATOR if you should use them. In children under 12, the only anti-diarrheal that should be considered is Kaopectate. Diet: 1) For the next 12-24 hours, take clear liquids only. No dairy and no caffeinated beverages. After you have not vomited for a complete hour (either with or without the help of the anti-nausea medicine), begin by taking one tablespoon of clear liquid every 15 minutes for one hour. If you are able to tolerate this, you may increase the amount to 2 tablespoons every hour for the next 2 hours. 2) Clear liquids such as gatorade, pedialyte or broth are recommended because of the electrolytes and sugars that will help replenish the losses from vomiting and diarrhea. 3) If you are able to tolerate clear liquids as instructed above, you may begin to take a bland diet. Plain pasta/noodles or toast are suggestions. If you have had diarrhea, bananas, rice and applesauce are suggested as these can help make the stools more solid. Avoid greasy, fatty or fried foods FOLLOW UP You should make an appointment to see your primary care provider within 24 hours or sooner for worsening condition as described below. If you do not have a primary care doctor, you should follow up with one of the PCP suggestions from [facility]. SEEK CARE IMMEDIATELY IF: 1) You are still unable to tolerate any oral intake after 24 hours 2) You have blood in your vomit or stool 3) You develop severe abdominal pain that does not go away after an episode of vomiting or diarrhea 4) You have severe dizziness, heart palpitations or are passing out 5) You develop severe muscle cramps or weakness 6) You have not made urine in over 24 hours If you develop any new or worsening symptoms and need after hours care, please go to nearest ER and/or call 911. If you have additional concerns or develop a change in your condition between 8am-10pm, please call [facility] at [phone] to help navigate your care. [email or web address] Not available 10/24/2021 22:40:03 08/21/2022 [id number] Thank you for yo ur visit with [facility] today. You do not appear to have a fracture or dislocation that requires immediate surgical intervention. However, small breaks or ligament tears may not be obvious on initial examination. Given this concern, we may have placed you in a temporary splint. If an xray is indicated, we will help direct you to the best option to obtain your imaging study. We have also given you follow up directions. Please follow up with your primary care physician or specialist as directed. If you develop any new or worsening symptoms and need after hours care, please go to nearest ER and/or call 911. If you have additional concerns or develop a change in your condition between 8am-10pm, please call [facility] at [phone] to help navigate your care. Ankle Sprain An ankle sprain happens when one or more ligaments in your ankle joint stretch or tear. Ligaments are tough elastic-like tissues that connect bones. Ligaments support and keep your joints stable. Medicines: Unless you are allergic or have some other contraindication (for example, severe gastric ulcer disease or kidney disease) then you should use Ibuprofen regularly for 3 days. For adults, take 400 mg 3 times per day for 3 days and then STOP. Prolonged use of Ibuprofen can hurt the stomach and kidney. For children, consult weight-based dosing on the bottle. Prescription Pain Medicine: You may have been prescribed a strong opiate pain medicine. Use this for more severe pain. Do not drive, drink alcohol, operate heavy machinery or take other sedating medicines while you are using this medicine. Prescription pain medicines are constipating. While you are using this medicine, you may want to take an snxl-sjx-pvmlovg stool softener (like Ducosate Sodium) twice per day. Self Care: Activity: if you are able to bear weight with minimal pain, you may go ahead and do so and participate in your regular activities of daily living. However, if it is too painful to bear weight, then you should remain non-weight bearing until you can do so without pain or until you are re-evaluated by your regular MD or orthopedist. Early range of motion is important in recovery. So if you cannot bear weight, you should perform range of motion exercises by w riting the alphabet with your big toe. The Nurse Practitioner (CEMENT KILN OPERATOR) will show you how to do this. You may use crutches or a walker as needed. Avoid high impact activities such as running. If you are in a job that requires a lot of standing and walking or you are an athlete, you will need to see your MD for clearance prior to resuming these activities. There is no contraindication to working, but you may need to adjust your activities at work. Xrays: You may have been given a prescription for an outpatient xray. Your [facility] Nurse Practitioner will discuss how to obtain results of the xray. Ice: apply cold pack or ice bag 20 minutes every few hours for the first 48 hours for comfort. Use a protective layer such as a pillowcase in between the ice bag and you skin. Compression: The CEMENT KILN OPERATOR may recommend an loco wrap for comfort and support for the next 1-2 weeks. Wear the loco when you are up and moving around. Do not wear it in bed. Elevation: For the first 2-3 days after injury, try to keep ankle elevated above the level of your heart as often as you can. Air-Cast: You may have been given a removable ankle splint called an aircast to help give your ankle stability. Wear this whenever you are up and walking around for the next 2 weeks. You may use an loco wrap under the aircast and you MAY wear the aircast in bed if you would like. Follow-up: You should make appointment for reevaluation by your regular MD or orthopedic doctor within 7 days. Seek Care Immediately If: 1) The pain gets suddenly worse or is not helped with cpsi-lkp-jsyamon or prescription medications. 2) Your toes become cold, blue or numb 3) If you still cannot tolerate weight bearing one week after injury 4) If the swelling initially goes away and then returns several weeks later. If you develop any new or worsening symptoms and need after hours care, please go to nearest ER and/or call 911. If you have additional concerns or develop a change in your condition between 8am-10pm, please call [facility] at [phone] to help navigate your care. Not available 08/21/2022 18:09:47 Reason for Referral None Reported. Problems Name Problem SNOMED Code Status Onset Date Resolution Date Notes Provider Name and Address Organization Details Recorded Time Type 2 diabetes mellitus 47571586 Active 2021 BRYN REYNAGA NP [address], [place], [address], [place] [facility] 2 13:37:34 Hyperlipidem ia [id number] Active 2021 BRYN REYNAGA, CEMENT KILN OPERATOR [address] [facility] [place], [address], [place] [facility] 2 13:37:41 Hypertensive disorder 50771161 Active 2021 BRYN REYNAGAYOEL [address], [facility] [place], [address], [place] [facility] 2 13:38:18 Mixed anxiety and depressive disorder [id number] Active 2021 BRYN MACDONALDCHON, YOEL [address] [facility] [place], [address], [place] [facility] 13:38:38 Problem Notes None recorded. Procedures Surgical History Date Name Laterality Status Provider Name and Address Organization Details Recorded Time Cholecystectomy completed Chelsie zamora, YOEL [address], [place], [address], [place] [facility] 10/24/2021 21:03:19 Carpal tunnel surgery completed Chelsie Modi NP [address], [place], [address], [place] [facility] 10/24/2021 21:03:44 section completed Chelsie pierson, CEMENT KILN OPERATOR [address], [place], [address], [place] [facility] 10/24/2021 21:03:54 Imaging Results None recorded. Procedure Notes None recorded. Medical Equipment None Reported. Allergies No known drug allergies Medications Name Sig Start Date Stop Date Status Note LastModified by Organization Details LastModified Time nystatin 100,000 unit/mL oral suspension SWISH AND SWALLOW 5 ML BY MOUTH 4 TIMES DAILY active Not Available Not Available No t Available atorvastati n 10 mg tablet TAKE 1 TABLET BY MOUTH EVERY DAY active Not Available Not Available No t Available glipizide ER 10 mg tablet, extended release 24 hr TAKE 2 TABLETS BY MOUTH EVERY DAY active Not Available Not Available No t Available FreeStyle Lancets 28 gauge USE TO CHECK GLUCOSE DAILY DX E11.9 active Not Available Not Available No t Available ondansetron HCl 4 mg tablet TAKE 1 TABLET BY MOUTH EVERY 8 HOURS NEEDED FOR NAUSEA AND VOMITING active Not Available Not Available No t Available acyclovir 400 mg tablet TAKE 1 CAPSULE BY MOUTH 3 TIMES A DAY FOR 7 DAYS 10/24 completed Not Available Not Available Not Available sulfamethox azole 800 mg-trimetho prim 160 mg tablet TAKE 1 TABLET BY MOUTH EVERY 12 HOURS FOR 10 DAYS 05/29 completed Not Available Not Available Not Available omeprazole 40 mg capsule,del ayed release TAKE 1 CAPSULE BY MOUTH TWICE A DAY active Not Available Not Available No t Available triamcinolo ne acetonide 0.1 % topical cream APPLY A THIN FILM TO AFFECTED AREA TWICE DAILY FOR 14 DAYS 05/29 completed Not Available Not Available Not Available meloxicam 7.5 mg tablet TAKE 1 TABLET BY MOUTH EVERY DAY active Not Available Not Available No t Available bupropion HCl 100 mg tablet TAKE 1 TABLET BY MOUTH TWICE A DAY active Not Available Not Available No t Available amlodipine 10 mg tablet TAKE 1 TABLET BY MOUTH EVERY DAY active Not Available Not Available No t Available cephalexin 500 mg capsule TAKE 1 CAPSULE BY MOUTH EVERY 12 HOURS FOR 7 DAYS 10/24 completed Not Available Not Available Not Available trazodone 150 mg tablet TAKE 1 TABLET BY MOUTH EVERYDAY AT BEDTIME active Not Available Not Available No t Available metformin 1,000 mg tablet TAKE 1 TABLET BY MOUTH TWICE A DAY active Not Available Not Available No t Available nystatin 100,000 unit/gram topical cream USE 1 APPLICATI ON TOPICALLY 3 TIMES A DAY,X7 DAYS active Not Available Not Available No t Available oxybutynin chloride ER 5 mg tablet,exte nded release 24 hr TAKE 1 TABLET BY MOUTH EVERYDAY AT BEDTIME active Not Available Not Available No t Available omeprazole 20 mg capsule,del ayed release Take 2 capsules every day by oral route. active Not Available Not Available No t Available cephalexin 500 mg tablet Take 1 tablet every 12 hours by oral route for 7 days. 10/24 completed Not Available Not Available Not Available mupirocin 2 % topical ointment APPLY TOPICALLY TWICE A DAY X 14 DAYS APPLY TO AFFECTED SKIN 10/24 completed Not Available Not Available Not Available nystatin 100,000 unit/gram topical powder APPLY TO AFFECTED AREA TWICE A DAY active Not Available Not Available No t Available ondansetron 4 mg disintegrat ing tablet PLACE 1 TABLET ON TONGUE AND ALLOW TO DISSOLVE EVERY 6 HOURS NEEDED active Not Available Not Available No t Available hydroxyzine pamoate 25 mg capsule TAKE 1 CAPSULE BY MOUTH 3 TIMES A DAY NEEDED FOR ANXIETY active Not Available Not Available No t Available Fiber Therapy (methylcell ulose) 500 mg tablet TAKE 1 CAPSULE BY MOUTH DAILY WITH PLENTY OF WATER. OK TO INCREASE TO 2 CAPSULES AFTER 1-2 WEEKS 10/24 completed Not Available Not Available Not Available FreeStyle Lite Meter kit USE TO CHECK GLUCOSE DAILY DX E11.9 active Not Available Not Available No t Available FreeStyle Lite Strips USE TO CHECK GLUCOSE DAILY DX E11.9 active Not Available Not Available No t Available Readi-Cat 2 2 % (w/v) oral suspension PER RADIOLOGY 'S INSTRUCTI ONS 10/24 completed Not Available Not Available Not Available Vitals Date Recorded Oxygen saturation Body temperature Respiratory rate Heart rate Systolic And Diastolic Provider Name and Address Organization Details Last Updated DateTime 2 97 % 97 [degF] 16 /min 86 /min 146/78 mm[Hg] Not Available [facility] 2 13:44:38 Date Recorded Oxygen saturation Respiratory rate Body temperature Heart rate Systolic And Diastolic Provider Name and Address Organization Details Last Updated DateTime 3 96 % 18 /min 98 [degF] 93 /min 116/58 mm[Hg] Not Available [facility] 3 18:14:46 Date Recorded Respiratory rate Body temperature Oxygen saturation Heart rate Systolic And Diastolic Provider Name and Address Organization Details Last Updated DateTime 2 16 /min 98.3 [degF] 94 % 96 /min 130/64 mm[Hg] Not Available [facility] 2 20:51:43 Social History Question Answer Notes LastModified by Organizat ion Details LastModified Time Tobacco Smoking Status Former Smoker BRYN REYNAGA NP [address], [place], [address], [place] [facility] 05/29/2021 13:41:56 Do You Have An Advance Directive? No Information not available 05/29/2021 What Is Your Code Status? Full Code Information not available 05/29/2021 Within The Past 12 Months, Has It Happened That The Food You Bought Just Didn't Last And You Didn't Have Money To Get More. No Information not available 05/29/2021 Within The Past 12 Months, Have You Worried That Your Food Would Run Out Before You Got Money To Buy More. No Information not available 05/29/2021 Fall Risk: Do You Feel Unsteady When Standing Or Walking? No Information not available 05/29/2021 We Know That How And When People Interact With Friends And Family Can Be Very Different From Person To Person. How Often Do You Have The Opportunity To See Or Talk To People That You Care About And Feel Close To? (Ex: Talking To Friends On The Phone Or Visiting Friends Or Family Or Going To Advent Or Club Meetings) 5 Or More Times Per Week Lives With Daughter Information not available 05/29/2021 Excessive Alcohol Or Drug Use No Information not available 05/29/2021 Does This Patient Have A PCP? Yes Information not available 05/29/2021 Has The Patient Seen Their PCP In The Past 6 Months? Yes [email or web address] Information not available 08/21/2022 We Know From Many Of Our Patients That Covering All Of Their Costs Can Be Difficult At Times. This Can Cause Stress And Impact Health. In The Past Year, Have You Been Unable To Get Any Of The Following When It Was Really Needed? No Daughter Helps Her With This Information not available 05/29/2021 What Is Your Housing Situation Today? I Have Housing Information not available 05/29/2021 Would You Like Help Connecting To Resources? None Information not available 05/29/2021 How Many Years Have You Smoked Tobacco? 30 Information not available 05/29/2021 Sex: Female Functional Status Question Answer Note LastModified by Organizat ion Details LastModified Time Do you use any illicit or recreational drugs? No Information not available 05/29/2021 Do you or have you ever used any other forms of tobacco or nicotine? No Information not available 05/29/2021 What is your level of alcohol consumption? None Information not available 05/29/2021 Mental Status None recorded. Family History Relationship Description Onset Age of this Age Resolved Age Notes LastModified by Organization Details LastModified Time Mother Chronic obstructive pulmonary disease 79 [email or web address] Not available 2021 13:40:51 Father Diabetes mellitus 64 [email or web address] Not available 2021 13:41:10 Medical History Condition Response Diabetes Y Hypertension Y Depression Y High Cholesterol Y Gynecological HistoryNo gynecological history recorded. Obstetrics History GPAL:G 0 P 0 0 0 0 Past Encounters Encounter ID Performer Location Encounter Start Date Encounter Closed Date Diagnosis/Indication Diagnosis SNOMED-CT Code Diagnosis ICD10 Code Diagnosis IMO Codes Diagnosis Note [id number] BRYN REYNAGA NP [facility] [address] [place] [address] 05/29/2021 13:36:19 06/07/2021 14:13:28 Onychomycosis of toenails 248897140 B35.1 Wound cellulitis 8672743 03 L03.90 right great toe Type 2 amish betes mellitus 84526835 E11.21 [id number] Chelsie Modi NP [facility] [address] [place] [address] 10/24/2021 20:46:47 11/08/2021 09:37:38 Nausea, vomiting and diarrhea 3374977 R11.2 Gastroesop hageal reflux disease 632766046 K21.9 Irritable bowel syndrome 04560436 K58.9 [id number] Lakisha Jean NP [facility] [address] [place] [address] 08/21/2022 18:08:26 08/22/2022 12:33:41 Sprain of left foot 4070905581 0422126 S93.612A Status of condition: Acute. Testing/Re sults: XR intended to be ordered, pt not able to obtain due to lack of transporta tion and too many steps in apt building Discussion : Possible fracture to 5th metatarsal but as discussed w pt she is not able to obtain transporta tion to get XR. Wrapped with loco bandage and educated on how to do so, extra left with patient and dtr. RICE. If no improvemen t follow up with PCP. Discussed risks of not obtaining fx. + [place] rules with TTTP 5th metarsal. Plan, Medication Management & Follow-up recommenda tions:Tyle lnol/ motrin for painRICEF/ u if no improvemen t Health Concerns Section Related Observation LastModified by Organization Detai ls LastModified Time None Recorded Concern Status LastModified by Organization Details LastModified Time None Recorded Advance Directives Directive N: Payers Insurance Date Sequence Insurance Name Policy Number Policy Maxwell Covered Member ID Maxwell Member ID Guarantor Name 04/01/2023 1 [place] [employer] Francine S Deragon [id number] Francine Deragon 04/01/2023 2 [place] Francine Deragon [id number] Francine Deragon 05/29/2021 1 *SELF PAY* Francine Deragon [id number] Francine Deragon 04/01/2023 1 [place] [employer] Francine S Deragon [id number] Francine Deragon 06/14/2021 2 [place] Francine Deragon [id number] Francine Deragon Notes Date Note Type Note Provider Name and Address Organization Details Recorded Time 05/29/2021 text/html Patient is new to and this provider with PMH of T2DM, HTN, HLD, depression/Anxiety who c/o of bleeding from her right great toe for the past 6 months on and off. She has seen her PCP and has taken antibiotics for this, last time in March 2021. She called to come to the home to check her toe because it is hard for her to walk up stairs to her PCP office. She denies any injury. She admits to some pain in her right great toe but denies any foot pain. She states she has had this pain for several months. The pain is dull and worse at times when she bumps it. She was concerned because she noticed some oozing of leakage around the right great toe nail. She states she is able to walk on it but that she has had some numbness to both her feet for a while now. She states she does have a person that comes to her house every once and a while to check her feet but she is not sure what agency or what type of caregiver this is. She admits to ignoring her blood sugar and doesn't check them. She states she has a hard time avoiding sugar and enjoys drinking soda. She denies any leg or calf pain. No fever or chills. BRYN REYNAGA, YO[facility] [address], [place], [address], [place] [facility] 05/29/2021 14:48:46 10/24/2021 text/html 51 yo f has a history of depression, DM, HLD, HTN, IBS and anxiety is seeking evaluation for intermittent N/V/D intermittent x 4 months or more. She states her symptoms usually last or 1-2 days and she was told she could use Imodium for diarrhea. She is eating and drinking at baseline. She report typically having metallic taste in her mouth prior to vomiting. She report having a couple of episode vomiting and nausea over the last 3 days. There is no abdominal pain. Chelsie Modi NP [address], [place], [address], [place] [facility] 11/01/2021 02:22:48 08/21/2022 text/html General HPI Template - DHReported by Patient Pt states fell 2 nights ago. Has continued with L ankle and foot pain. Pt states was in the bathroom and was trying to get over to shower bench was unable to hold onto rail slipped and thinks that ankle hit something in the bathroom. Pain to top of the ankle. Mild swelling. Pain is moderate. ibuprofen with some improvement. Able to take a few steps on ankle but has pain in doing so. Denies hitting head, blacking out, chest pain, sob. Lakisha Jean NP [address], [place], [address], [place] [facility] 08/21/2022 18:51:58 OBGyn Episode No OBEpisode recorded.
== END 2025-04-05 15:54 | disposition home or self-care (01) ==
LOC: HO.HMCFMS 15:02
PROVIDERS: Visit Provider Student in an Organized Health Care Education/Training Program
DX: F32.9 Major depressive disorder, single episode, unspecified (principal); F41.1 Generalized anxiety disorder; E11.9 Type 2 diabetes mellitus without complications; K59.09 Other constipation; M19.90 Unspecified osteoarthritis, unspecified site; M25.541 Pain in joints of right hand; M25.542 Pain in joints of left hand; M79.7 Fibromyalgia; Z86.73 Personal history of transient ischemic attack (TIA), and cerebral infarction without residual deficits; M51.369 Other intervertebral disc degeneration, lumbar region without mention of lumbar back pain or lower extremity pain; M54.12 Radiculopathy, cervical region; G89.29 Other chronic pain; R26.81 Unsteadiness on feet; Z99.3 Dependence on wheelchair; M41.9 Scoliosis, unspecified; D50.9 Iron deficiency anemia, unspecified; N18.9 Chronic kidney disease, unspecified

== ENCOUNTER → 2025-04-05 15:02 | Outpatient (BNVA) | payer MEDICARE, MEDICAID, SELFPAY | PROVIDERS: Visit Provider Student in an Organized Health Care Education/Training Program | DX: Z71.2 Person consulting for explanation of examination or test findings (principal); E11.9 Type 2 diabetes mellitus without complications; F41.1 Generalized anxiety disorder; F32.9 Major depressive disorder, single episode, unspecified; K59.09 Other constipation; M25.541 Pain in joints of right hand; M25.542 Pain in joints of left hand; M79.7 Fibromyalgia; M51.369 Other intervertebral disc degeneration, lumbar region without mention of lumbar back pain or lower extremity pain; G89.29 Other chronic pain; R26.81 Unsteadiness on feet; M41.9 Scoliosis, unspecified; H92.09 Otalgia, unspecified ear; Z86.73 Personal history of transient ischemic attack (TIA), and cerebral infarction without residual deficits; Z13.31 Encounter for screening for depression; Z13.39 Encounter for screening examination for other mental health and behavioral disorders | CPT/HCPCS: 96127; 99212 ==